=== PATIENT | female | born 1985 | race African-American/Black ===

== ENCOUNTER 2020-08-25 18:34 | Inpatient (IN) | payer SELFPAY ==
[2020-08-25 20:28] LABS: Absolute Lymphocytes (CBC) 1.7 K/uL (0.7-4.9); Basophils % 1.4 % (0-1.3); Hematocrit 32.3 % (36.0-45.0); Lymphocytes % 33.2 % (15.3-44.8); MPV 10.5 fL (7.6-11.3); RBC Red Blood Cell Count 3.89 M/uL (3.86-4.86)
[2020-08-25 20:32] LABS: ALT/SGPT 20 U/L (12-78); AST/SGOT 23 U/L (15-37); Albumin 1.1 g/dL (3.4-5.0); Alkaline Phosphatase 72 U/L (45-117); BUN Blood Urea Nitrogen 15 mg/dL (7-18); Bicarbonate 25 mmol/L (21-32); Bilirubin Direct < 0.1 mg/dL (0-0.2); Glucose Level 86 mg/dL (74-106); Lipase 159 U/L (73-393); Potassium 4.6 mmol/L (3.5-5.1); Protein, Total 5.2 g/dL (6.4-8.2); Sodium Level 143 mmol/L (136-145)
[2020-08-25 20:41] LABS: Protime INR 0.81
[2020-08-25 20:45] LABS: Magnesium 2.1 mg/dL (1.8-2.4); NT PRO-BNP 1111 pg/mL (<125); Troponin (Emerg Dept Use Only) < 0.02 ng/mL (0.0-0.045)
[2020-08-25 21:03] LABS: Bilirubin Total < 0.1 mg/dL (0.2-1.0)
[2020-08-25 21:18] LABS: Urine Blood 2+ (NEG); Urine Glucose NEGATIVE (NEG); Urine Protein 3+ (NEG); Urine Specific Gravity 1.025 (1.005-1.030)
--- NOTE | 2020-08-25 21:24 | RAD REPORT ---
EXAM DESCRIPTION: Clarita Single View08/25/2020 8:42 pm CLINICAL HISTORY: Shortness breath COMPARISON: none FINDINGS: The lungs appear clear of acute infiltrate. The heart is borderline enlarged. Scoliosis i nvolves the spine IMPRESSION: No acute abnormalities displayed
--- NOTE | 2020-08-25 21:41 | EDPHYS ---
Physician Documentation [facility] Name: Sha Hernandez Age: 35 yrs Sex: Female : 1985 Arrival Date: 08/25/2020 Time: 18:35 Bed 20 Private MD: ED Physician Drake Ely HPI: 08/25 20:44 This 35 yrs old Black Female presents to ER via Ambulatory with complaints of jr8 Nausea/Vomiting. 20:44 Onset: The symptoms/episode began/occurred acutely, today. Possible causes: unknown. jr8 The symptoms are aggravated by nothing. The symptoms are alleviated by nothing. Associated signs and symptoms: Pertinent positives: diarrhea, swelling . Severity of symptoms: At their worst the symptoms were moderate in the emergency department the symptoms are unchanged. The patient has not experienced similar symptoms in the past. The patient has not recently seen a physician. Patient stated that she started with edema to lower extremities about 2 weeks ago. Then with diarrhea about 4 days ago and now with vomiting. No medical history that she knows of and denies sick contacts. 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 - Social history:: Smoking status: Patient/guardian denies using tobacco, Stopped _ months ago 4. ROS: 20:44 Eyes: Negative for injury, pain, redness, and discharge, ENT: Negative for injury, jr8 pain, and discharge, Neck: Negative for injury, pain, and swelling, Respiratory: Negative for shortness of breath, cough, wheezing, and pleuritic chest pain, MS/Extremity: Negative for injury and deformity, Skin: Negative for injury, rash, and discoloration, Neuro: Negative for headache, weakness, numbness, tingling, and seizure. 20:44 Cardiovascular: Positive for edema, Negative for chest pain, orthopnea, palpitations, paroxysmal nocturnal dyspnea. 20:44 Abdomen/GI: Positive for nausea, vomiting, and diarrhea, abdominal distension, Negative for abdominal pain, dysphagia, hematemesis, black/tarry stool, rectal pain, rectal bleeding, bowel incontinence, flatulence. 20:44 Back: Positive for pain at rest, Negative for injury or acute deformity, pain with movement, radiated pain. Exam: 20:44 Eyes: Pupils equal round and reactive to light, extra-ocular motions intact. Lids and jr8 lashes normal. Conjunctiva and sclera are non-icteric and not injected. Cornea within normal limits. Periorbital areas with no swelling, redness, or edema. ENT: Nares patent. No nasal discharge, no septal abnormalities noted. Tympanic membranes are normal and external auditory canals are clear. Oropharynx with no redness, swelling, or masses, exudates, or evidence of obstruction, uvula midline. Mucous membranes moist. Neck: Trachea midline, no thyromegaly or masses palpated, and no cervical lymphadenopathy. Supple, full range of motion without nuchal rigidity, or vertebral point tenderness. No Meningismus. Respiratory: Lungs have equal breath sounds bilaterally, clear to auscultation and percussion. No rales, rhonchi or wheezes noted. No increased work of breathing, no retractions or nasal flaring. Back: No spinal tenderness. No costovertebral tenderness. Full range of motion. Skin: Warm, dry with normal turgor. Normal color with no rashes, no lesions, and no evidence of cellulitis. MS/ Extremity: Pulses equal, no cyanosis. Neurovascular intact. Full, normal range of motion. Neuro: Awake and alert, GCS 15, oriented to person, place, time, and situation. Cranial nerves II-XII grossly intact. Motor strength 5/5 in all extremities. Sensory grossly intact. Cerebellar exam normal. Normal gait. 20:44 Cardiovascular: Rate: normal, Rhythm: regular, Pulses: Pulses are 2+ in right radial artery and left radial artery. Heart sounds: normal, normal S1and S2, no S3 or S4, no murmur, no rub, no gallop, Edema: 2+ edema to level of left midcalf, left ankle, left foot, left toes, right midcalf, right ankle, right foot and right toes. 20:44 Abdomen/GI: Inspection: distension, that is mild, Bowel sounds: active, all quadrants, Palpation: abdomen is soft and non-tender, in all quadrants. Vital Signs: 18:51 BP 155 / 112; Pulse 65; Resp 17 S; Temp 97.8(O); Pulse Ox 100% on R/A; Weight 61.23 kg jd3 (R); Height 5 ft. 6 in. (167.64 cm) (R); Pain 8/10; 20:00 BP 158 / 96; Pulse 65; Resp 18; Pulse Ox 99% ; wh 21:00 BP 154 / 100; Pulse 67; Resp 17; Pulse Ox 99% ; wh 22:29 BP 168 / 105; Pulse 61; Resp 18; Pulse Ox 100% on R/A; wh 18:51 Body Mass Index 21.79 (61.23 kg, 167.64 cm) jd3 MDM: 19:41 Patient medically screened. [facility] 21:35 Data reviewed: vital signs, nurses notes, lab test result(s), EKG, radiologic studies, [facility] CT scan, plain films. Data interpreted: Pulse oximetry: on room air is 99 %. Interpretation: normal. Counseling: I had a detailed discussion with the patient and/or guardian regarding: the historical points, exam findings, and any diagnostic results supporting the discharge/admit diagnosis, lab results, radiology results, the need for further work-up and treatment in the hospital. 08/25 19:41 Order name: Basic Metabolic Panel; Complete Time: 21:12 08/25 19:41 Order name: CBC with Diff; Complete Time: 20:43 08/25 19:41 Order name: Hepatic Function; Complete Time: 21:12 08/25 19:41 Order name: Lipase; Complete Time: 21:12 08/25 20:05 Order name: Magnesium; Complete Time: 20:51 8 08/25 20:05 Order name: NT PRO-BNP; Complete Time: 20:51 8 08/25 20:05 Order name: PT-INR; Complete Time: 20:43 8 08/25 20:05 Order name: Troponin (emerg Dept Use Only); Complete Time: 20:51 08/25 20:05 Order name: XRAY Chest (1 view); Complete Time: 21:36 08/25 20:09 Order name: Urine For Protein, Random; Complete Time: 21:12 08/25 20:09 Order name: Urine Creatinine; Complete Time: 21:01 08/25 20:42 Order name: Urine Dipstick--Ancillary (enter results); Complete Time: 21:21 ds4 08/25 21:16 Order name: CT Abd/Pelvis - IV Contrast Only 8 08/25 19:41 Order name: IV Saline Lock; Complete Time: 20:34 jr8 08/25 19:41 Order name: Labs collected and sent; Complete Time: 20:34 8 08/25 19:41 Order name: Urine Dipstick-Ancillary (obtain specimen); Complete Time: 20:38 8 08/25 20:05 Order name: EKG; Complete Time: 20:06 8 08/25 20:05 Order name: Cardiac monitoring; Complete Time: 20:34 8 08/25 20:05 Order name: EKG - Nurse/Tech; Complete Time: 20:34 8 08/25 20:05 Order name: O2 Per Protocol; Complete Time: 20:34 8 08/25 20:05 Order name: O2 Sat Monitoring; Complete Time: 20:34 Administered Medications: 22:04 Drug: Lasix 40 mg {Note: 168/105.} Route: IVP; Site: right antecubital; 22:30 Follow up: Response: No adverse reaction Disposition: 08/25/20 21:40 Hospitalization ordered by Antonio Medina for Inpatient Admission. Preliminary diagnosis is Nephrotic syndrome. - Bed requested for Telemetry/MedSurg (Inpatient). - Status is Inpatient Admission. - Condition is Fair. - Problem is new. - Symptoms are unchanged. Addendum: 08/28/2020 07:09 Co-signature as Attending Physician, Drake Ely MD I agree with the assessment and c cheung plan of care. Signatures: Dispatcher [employer] [facility] Drake Ely MD MD cha Roszak, Josh, PA PA jr8 Lavell Dominguez, BOX PERSON-C BOX PERSON-Cla1 Connie Baker, RN RN Da Engle Alex Nina RN RN jd3 Corrections: (The following items were deleted from the chart) 08/25 19:41 19:41 Urine Test ordered. [facility] 21:47 21:40 Hospitalization Ordered by Antonio Medina MD for Inpatient Admission. Preliminary cg diagnosis is Nephrotic syndrome. Bed requested for Telemetry/MedSurg (Inpatient). Status is Inpatient Admission. Condition is Fair. Problem is new. Symptoms are unchanged. jr8 23:04 21:47 08/25/2020 21:40 Hospitalization Ordered by Antonio Medina MD for Inpatient Admission. Preliminary diagnosis is Nephrotic syndrome. Bed requested for Telemetry/MedSurg (Inpatient). Status is Inpatient Admission. Condition is Fair. Problem is new. Symptoms are unchanged. cg
--- NOTE | 2020-08-25 21:41 | ER ---
Nurse's Notes [facility] Name: Sha Hernandez Age: 35 yrs Sex: Female : 1985 Arrival Date: 08/25/2020 Time: 18:35 Bed 20 Private MD: Diagnosis: Nephrotic syndrome Presentation: 08/25 18:49 Chief complaint: Spouse and/or significant other states: "it started about a week ago. jd3 she started swelling in her stomach. then was diarrhea, now it throwing up for accouple of days.". Coronavirus screen: diarrhea, Client presents with at least one sign or symptom that may indicate coronavirus-19. Standard/surgical mask placed on the client. Provider contacted for isolation considerations. At this time, the client does not indicate any symptoms associated with coronavirus-19. Ebola Screen: Patient negative for fever greater than or equal to 101.5 degrees Fahrenheit, and additional compatible Ebola Virus Disease symptoms. Initial Sepsis Screen: Does the patient meet any 2 criteria? No. Patient's initial sepsis screen is negative. Does the patient have a suspected source of infection? No. Patient's initial sepsis screen is negative. Risk Assessment: Do you want to hurt yourself or someone else? Patient reports no desire to harm self or others. Onset of symptoms was August 15, 2020. 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 - Social history:: Smoking status: Patient/guardian denies using tobacco, Stopped _ months ago 4. Screenin:00 Abuse screen: Denies threats or abuse. Denies injuries from another. Nutritional wh screening: No deficits noted. Tuberculosis screening: No symptoms or risk factors identified. Fall Risk None identified. Assessment: 19:30 General: Appears in no apparent distress. Behavior is calm, cooperative, appropriate wh for age. Pain: Complains of pain in low back. Neuro: Level of Consciousness is awake, alert, obeys commands, Oriented to person, place, time, situation, Appropriate for age. Cardiovascular: Heart tones S1 S2 Edema is 2+ to left ankle and right ankle Rhythm is regular. Respiratory: Airway is patent Respiratory effort is even, unlabored, Respiratory pattern is regular, symmetrical, Breath sounds are clear bilaterally. GI: Abdomen is flat, distended, Bowel sounds present X 4 quads. Abd is soft Abdomen is tender to palpation X 4 quads. GI: Reports diarrhea, nausea, vomiting. : No signs and/or symptoms were reported regarding the genitourinary system. EENT: No signs and/or symptoms were reported regarding the EENT system. Derm: Skin is intact, is healthy with good turgor, Skin is pink, warm \\T\\ dry. normal. Musculoskeletal: Circulation, motion, and sensation intact. 20:55 Reassessment: Patient appears in no apparent distress at this time. No changes from previously documented assessment. Patient and/or family updated on plan of care and expected duration. Pain level reassessed. Patient is alert, oriented x 3, equal unlabored respirations, skin warm/dry/pink. 22:00 Reassessment: Patient appears in no apparent distress at this time. Patient and/or family updated on plan of care and expected duration. Pain level reassessed. Patient is alert, oriented x 3, equal unlabored respirations, skin warm/dry/pink. Provider AT bedside explaing POC need for admit. Vital Signs: 18:51 BP 155 / 112; Pulse 65; Resp 17 S; Temp 97.8(O); Pulse Ox 100% on R/A; Weight 61.23 kg jd3 (R); Height 5 ft. 6 in. (167.64 cm) (R); Pain 8/10; 20:00 BP 158 / 96; Pulse 65; Resp 18; Pulse Ox 99% ; wh 21:00 BP 154 / 100; Pulse 67; Resp 17; Pulse Ox 99% ; wh 22:29 BP 168 / 105; Pulse 61; Resp 18; Pulse Ox 100% on R/A; wh 18:51 Body Mass Index 21.79 (61.23 kg, 167.64 cm) jd3 ED Course: 18:35 Patient arrived in ED. ag5 18:50 Triage completed. jd3 18:51 Arm band placed on. jd3 19:40 Jim Davis PA is PHCP. jr8 19:40 Drake Ely MD is Attending Physician. jr8 19:43 Da Engle is Primary Nurse. 20:00 Patient has correct armband on for positive identification. Placed in gown. Bed in low wh position. Call light in reach. Side rails up X 1. prototype special build on. Pulse ox on. NIBP on. 20:00 Inserted saline lock: 20 gauge in right antecubital area, using aseptic technique. Blood collected. 20:41 Urine For Protein, Random Sent. ds4 20:41 Urine Creatinine Sent. ds4 20:42 XRAY Chest (1 view) In Process Unspecified. EDMS 20:42 EKG done, by ED staff, reviewed by Jim MTZ. ds4 21:40 Antonio Medina MD is Hospitalizing Provider. jr8 21:57 CT Abd/Pelvis - IV Contrast Only In Process Unspecified. EDMS 22:29 No provider procedures requiring assistance completed. Patient admitted, IV remains in place. Administered Medications: 22:04 Drug: Lasix 40 mg {Note: 168/105.} Route: IVP; Site: right antecubital; 22:30 Follow up: Response: No adverse reaction Outcome: 21:40 Decision to Hospitalize by Provider. jr8 22:53 Admitted to Med/surg accompanied by tech, family with patient, via wheelchair, room wh 231, with chart, Report called to Yuridia Carrillo RN 22:53 Condition: stable 22:53 Instructed on the need for admit. 23:04 Patient left the ED. Signatures: Dispatcher [employer] EDMS Jim Davis PA PA jr8 Navin Wang ds4 Da Engle Alex Nina RN RN jd3 Td Capps ag5 Corrections: (The following items were deleted from the chart) 21:09 19:30 Cardiovascular: Heart tones S1 S2 Rhythm is regular [facility]
[2020-08-25] MEDS ORDERED: FUROSEMIDE 40 MG/4 ML VIAL ONE (22:13)
--- NOTE | 2020-08-25 23:18 | P.HP ---
Certification for Inpatient Patient admitted to: Observation With expected LOS: <2 Midnights Patient will require the following post-hospital care: None Practitioner: I am a practitioner with admitting privileges, knowledge of patient current condition, hospital course, and medical plan of care. Services: Services provided to patient in accordance with Admission requirements found in Title 42 Section 412.3 of the Code of Federal Regulations <Lavell Dominguez - Last Filed: 08/25/20 23:12> Patient History Date of Service: 08/25/20 Primary Care Provider: None History of Present Illness: 35-year-old Afro-Iranian female with no medical history presents emergency department for edema over the course of the last 2 weeks and nausea vomiting, diarrhea for 1 day. Patient denies any similar symptoms in the past, reports swelling to bilateral lower extremities, abdomen, periorbital areas. Patient was evaluated in the emergency department and found to have Elevated urine random total protein of 1169, 3+ protein and 2+ blood on urine analysis creatinine is 1.08 GFR 71 BUN 15, BNP elevated at 1111. Albumin low at 1.1. Total serum protein 5.2. Patient also CT of the abdomen and pelvis due to nausea and vomiting which showed wall thickening and some loops of the small bowel and in portions of the colon suggesting infectious or inflammatory enterocolitis. There is also increased density in the mesenteric and omental fat which could be from inflammatory changes. Increased density throughout the subcutaneous tissues suggesting edema/anasarca. Due to physical exam and laboratory findings is likely patient has nephrotic syndrome. ED provider wishes to admit patient for further evaluation and management. When I saw the patient in the emergency department she was awake, alert, oriented x3. Patient reports she has been having nausea, vomiting, diarrhea admit the swelling began approximately 2 weeks ago. Patient does not appear septic at this time, white blood cell count within normal limits. Believe changes on CT scan are likely inflammatory in nature. The patient be admitted for further evaluation and management. - Past Medical/Surgical History -: None -: Tubal ligation Psychosocial/ Personal History: Patient lives at home with her - Family History Father -: Heart disease - Social History Smoking Status: Never smoker Alcohol use: No CD- Drugs: No Caffeine use: Yes Place of Residence: Home <BellanancieLavell - Last Filed: 08/25/20 23:12> Date of Service: 08/30/20 <Antonio Medina - Last Filed: 08/30/20 13:19> Review of Systems 10-point ROS is otherwise unremarkable General: Malaise Cardiovascular: Edema, As per HPI Gastrointestinal: Nausea, Vomiting, Diarrhea <Lavell Dominguez - Last Filed: 08/25/20 23:12> Physical Examination - Physical Exam General: Alert, In no apparent distress, Oriented x3 HEENT: Atraumatic, Normocephalic, PERRLA Neck: Supple Respiratory: Clear to auscultation bilaterally, Normal air movement Cardiovascular: Edema (Bilateral lower extremities, 1+ pitting, edema to the abdomen, periorbital edema) Capillary refill: <2 Seconds Gastrointestinal: Normal bowel sounds, No tenderness, No rebound, No guarding Musculoskeletal: No contractures, No erythema, No tenderness Integumentary: No significant lesion, No tenderness/swelling, No erythema Neurological: Normal speech, Normal strength at 5/5 x4 extr, Normal tone, Sensation intact - Studies Laboratory Data (last 24 hrs) 08/25/20 20:10: PT 9.6, INR 0.81 08/25/20 20:10: Magnesium 2.1 08/25/20 20:10: WBC 5.1, Hgb 10.5 L, Hct 32.3 L, Plt Count 238 08/25/20 20:10: Sodium 143, Potassium 4.6, BUN 15, Creatinine 1.08, Glucose 86, Total Bilirubin < 0.1 L, AST 23, ALT 20, Alkaline Phosphatase 72, Lipase 159 <Lavell Dominguez - Last Filed: 08/25/20 23:12> Assessment and Plan - Plan Assessment Nephrotic syndrome Hypoalbuminemia Enterocolitis Hypertension Plan Nephrotic syndrome: Nephrology consulted, labs that were recommended have been ordered. Patient with significant edema of the lower extremities, abdomen, periorbital areas. Continue with diuresis. Will obtain echocardiogram. Further evaluation from nephrology. Hypoalbuminemia: Discussed with nephrology, continue with diuresis at this time. Transfusion of albumin and not likely to be effective due to nephrotic syndrome. Appreciate further input from nephrology. Enterocolitis: Likely inflammatory in nature, white blood cell count within normal limits, patient without any pain or tenderness on exam. Will obtain pro calcitonin and repeat labs in the morning. Will trial prednisone. Hypertension: Continue with nephrology recommended hydralazine 100 mg t.i.d. with parameters. Discharge Plan: Home Plan to discharge in: 24 Hours - Advance Directives Does patient have a Living Will: No Does patient have a Durable POA for Healthcare: No - Code Status/Comfort Care Code Status Assessed: Yes (Patient is full code) Critical Care: No Time Spent Managing Pts Care (In Minutes): 55 <Lavell Dominguez - Last Filed: 08/25/20 23:12> Physician Review Additional Text: Plan of care discussed with Lavell Dominguez, and I agree with the management plan as noted above. <Antonio Medina - Last Filed: 08/30/20 13:19>
[2020-08-25 23:40] VITALS: BMI 24.5
[2020-08-26] MEDS: HYDRALAZINE HCL 20 MG/ML VIAL IV PRN ×2 (00:25→18:10)
[2020-08-26] MEDS: HEPARIN 5000 UNIT/ML 1 ML VIAL SQ SCH ×3 (00:25→16:22)
[2020-08-26 06:17] LABS: Absolute Lymphocytes (CBC) 1.5 K/uL (0.7-4.9); Basophils % 1.1 % (0-1.3); Lymphocytes % 26.4 % (15.3-44.8); RBC Red Blood Cell Count 3.82 M/uL (3.86-4.86)
[2020-08-26] MEDS: ACETAMINOPHEN 500 MG TAB PO PRN ×2 (06:31→16:49)
[2020-08-26 06:39] LABS: Thyroid Stimulating Hormone 3.32 uIU/mL (0.360-3.740)
[2020-08-26] MEDS: predniSONE 20 MG TAB PO SCH (08:15)
--- NOTE | 2020-08-26 08:20 | EKG ---
Test Date: 2020-08-25 Test Time: 20:29:53 Numerical Control Machine Tool Operator: KELSEY MEASUREMENT RESULTS: Intervals: Rate: 61 NC: 172 QRSD: 76 QT: 428 QTc: 430 [place]: P: 60 NC: 172 QRS: 63 T: 49 INTERPRETIVE STATEMENTS: Normal sinus rhythm with sinus arrhythmia Possible Left atrial enlargement Borderline ECG No previous ECG available for comparison Electronically Signed On 08-26-20 08:19:19 CDT by Bradly Beltrán
[2020-08-26] MEDS ORDERED: FUROSEMIDE 40 MG/4 ML VIAL IV SCH (09:00)
[2020-08-26] MEDS ORDERED: HYDRALAZINE HCL 25 MG TABLET PO SCH (09:00)
[2020-08-26] MEDS: HYDRALAZINE HCL 25 MG TABLET PO SCH ×3 (10:07→20:24)
[2020-08-26] MEDS: ONDANSETRON 4 MG/2 ML VIAL IV PRN (15:09)
--- NOTE | 2020-08-26 15:40 | P.CNS ---
Date of Consult: 08/26/20 Reason for Consult: edema, nephrotic range proteinuria Primary Care Provider: None History of Present Illness: HPI 35-year-old Afro-Filipino female with PMHx ofr mild anemia presents emergency department for edema over the course of the last 2 weeks and nausea vomiting, diarrhea for 1 day. 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 will order serology w/u will start on lipitor and lisinopril salt and fluid restriction cont lasix will consider renal biopsy as an OP edema as above HTN cont hydralazine, will add lisinopril HLD likely due to nephrotic syndrome will add lipitor hypoalbuminemia Allergies Sulfa (Sulfonamide Antibiotics) Allergy (Verified 08/25/20 23:40) Rash Home Medications: NK [No Home Meds] 08/25/20 - Past Medical/Surgical History Diabetic: No -: None -: Tubal ligation Psychosocial/ Personal History: Patient lives at home with her - Family History Father Medical History: Heart disease - Social History Alcohol use: No CD- Drugs: No Caffeine use: No Place of Residence: Home Physical Examination Temp Pulse Resp BP Pulse Ox 98.2 F 73 16 151/91 H 100 08/26/20 12:00 08/26/20 12:00 08/26/20 12:00 08/26/20 12:00 08/26/20 12:00 Laboratory Data (last 24 hrs) 08/25/20 20:10: PT 9.6, INR 0.81 08/25/20 20:10: Magnesium 2.1 08/25/20 20:10: WBC 5.1, Hgb 10.5 L, Hct 32.3 L, Plt Count 238 08/25/20 20:10: Sodium 143, Potassium 4.6, BUN 15, Creatinine 1.08, Glucose 86, Total Bilirubin < 0.1 L, AST 23, ALT 20, Alkaline Phosphatase 72, Lipase 159
--- NOTE | 2020-08-26 17:25 | P.PN ---
Subjective Date of Service: 08/26/20 Primary Care Provider: None Subjective: Improving (Improved bilateral leg swelling, no back pain) Review of Systems 10-point ROS is otherwise unremarkable Physical Examination - Vital Signs Temperature: 98 F Blood Pressure: 152/89 Pulse: 90 Respirations: 16 Pulse Ox (%): 100 - Physical Exam General: Alert, In no apparent distress HEENT: Mucous membr. moist/pink Neck: JVD not distended Respiratory: Clear to auscultation bilaterally, Normal air movement Cardiovascular: Edema (2+ pitting bilateral kidneys) Gastrointestinal: Soft and benign, Non-distended, No tenderness, Other (No CVA tenderness) Musculoskeletal: No erythema, No tenderness Integumentary: No rashes Neurological: Normal speech, Normal affect - Studies Laboratory Data (last 24 hrs) 08/25/20 20:10: PT 9.6, INR 0.81 08/25/20 20:10: Magnesium 2.1 08/25/20 20:10: WBC 5.1, Hgb 10.5 L, Hct 32.3 L, Plt Count 238 08/25/20 20:10: Sodium 143, Potassium 4.6, BUN 15, Creatinine 1.08, Glucose 86, Total Bilirubin < 0.1 L, AST 23, ALT 20, Alkaline Phosphatase 72, Lipase 159 Assessment & Plan Physician Review Additional Text: Nephrotic syndrome Hypoalbuminemia Enterocolitis Hypertension Hyperlipidemia Plan Nephrotic syndrome: -patient admitted with significant edema of lower extremities, abdomen, periorbital areas. -echocardiogram ordered -Nephrology consulted -urine studies and serology workup pending -Diuresing with 40 mg IV daily Hypoalbuminemia: -Transfusion of albumin not likely to be effective due to nephrotic syndrome. Enterocolitis: -Likely inflammatory in nature, white blood cell count within normal limits, patient without any pain or tenderness on exam. -pro calcitonin negative, started on prednisone on admission Hypertension: -hydralazine 50 mg t.i.d. with parameters. Hyperlipidemia -Lipid panel with elevated LDL and cholesterol, will start statin Dispo: anticipate dc home in 24-48 hrs, pending further workup/eval Time Spent Managing Pts Care (In Minutes): 35
[2020-08-26 19:00] LABS: Barbiturates NEGATIVE (NEGATIVE); Benzodiazepines NEGATIVE (NEGATIVE); Cocaine NEGATIVE (NEGATIVE); METHAMPHETAM NEGATIVE (NEGATIVE); Methadone NEGATIVE (NEGATIVE); Opiates NEGATIVE (NEGATIVE); Phencyclidine NEGATIVE (NEGATIVE); THC Cannibis POSITIVE (NEGATIVE)
[2020-08-26] MEDS: MELATONIN 5 MG TABLET PO SCH (20:24)
[2020-08-26] MEDS: ATORVASTATIN 20 MG TAB PO SCH (20:24)
[2020-08-26] MEDS: MORPHINE 2 MG/ML SYR IV PRN (23:58)
[2020-08-27] MEDS: HEPARIN 5000 UNIT/ML 1 ML VIAL SQ SCH ×3 (00:02→16:37)
[2020-08-27] MEDS: MORPHINE 2 MG/ML SYR IV PRN ×2 (06:16→19:41)
[2020-08-27 06:45] LABS: Absolute Lymphocytes (CBC) 2.4 K/uL (0.7-4.9); Basophils % 1.1 % (0-1.3); Lymphocytes % 26.5 % (15.3-44.8); MPV 10.5 fL (7.6-11.3); RBC Red Blood Cell Count 3.91 M/uL (3.86-4.86)
[2020-08-27 06:52] LABS: Magnesium 1.9 mg/dL (1.8-2.4)
[2020-08-27] MEDS: HYDRALAZINE HCL 25 MG TABLET PO SCH ×3 (08:56→21:10)
[2020-08-27] MEDS: predniSONE 20 MG TAB PO SCH (08:56)
--- NOTE | 2020-08-27 11:59 | P.PN ---
Subjective Date of Service: 08/27/20 Primary Care Provider: None Subjective: Improving (Swelling is better, denies any pain, denies shortness of breath, no dysuria) Physical Examination - Vital Signs Temperature: 98.3 F Blood Pressure: 139/80 Pulse: 92 Respirations: 20 Pulse Ox (%): 99 - Physical Exam General: Alert, In no apparent distress HEENT: Mucous membr. moist/pink, Sclerae nonicteric Respiratory: Clear to auscultation bilaterally, Normal air movement Cardiovascular: Regular rate/rhythm, Edema (1+ on b/l legs) Gastrointestinal: Soft and benign, Non-distended, No tenderness Musculoskeletal: No erythema, No tenderness Integumentary: No rashes Neurological: Normal speech, Normal affect Assessment & Plan Physician Review Additional Text: Nephrotic syndrome Hypoalbuminemia Enterocolitis Hypertension Hyperlipidemia Plan Nephrotic syndrome: -patient admitted with significant edema of lower extremities, abdomen, periorbital areas. -echocardiogram ordered -Nephrology consulted, urine studies and serology workup pending -Cr increased this morning (1.0-> 1.42), discontinued Lasix and lisinopril, repeats labs in AM Hypoalbuminemia: -Transfusion of albumin not likely to be effective due to nephrotic syndrome. Enterocolitis: -Likely inflammatory in nature, white blood cell count within normal limits, patient without any pain or tenderness on exam. -pro calcitonin negative, started on prednisone on admission, no abdominal tenderness Hypertension: -hydralazine 50 mg t.i.d. with parameters. Hyperlipidemia -Lipid panel with elevated LDL and cholesterol, started on statin on 08/26 Dispo: anticipate dc home in 24-48 hrs, pending further workup/eval, improvement of kidney function Time Spent Managing Pts Care (In Minutes): 35
--- NOTE | 2020-08-27 14:03 | P.PN ---
Subjective Date of Service: 08/27/20 Primary Care Provider: None Subjective 35-year-old Afro-[place]hut[place] female with PMHx ofr mild anemia presents emergency department for edema over the course of the last 2 weeks and nausea vomiting, diarrhea for 1 day. pt denied any Hx fo NSAID intake , no significant renal diseases in family today cr up to 1.4 after starting , lasix and lisinopril will dc lasix and lisinopril edema improved 24 hr urine ~7.8grams if no improvement in Cr then will consider renal biopsy during this admission Physical Examination: General: AAOX3, , obeses neck: supple, no elevated JVD Heart: RRR, normal S1,2 no murmur or rub chest CTAB, no rales or whezes Abdomen: soft , NT ext : +1 edema A/p Nephrotic range proteinuria unclear etiology , possible FSGS will order serology w/u off lisinopril and lasix due to [place] salt and fluid restriction cont lasix will consider renal biopsy if no improvement in Cr edema as above hold lasix for now HTN BP controlled cont hydralazine, HLD likely due to nephrotic syndrome will add Lipitor hypoalbuminemia gastroenteritis likely due to THC will stop prednisone Physical Examination - Vital Signs Temperature: 98.7 F Blood Pressure: 126/77 Pulse: 85 Respirations: 99 Pulse Ox (%): 99
[2020-08-27] MEDS ORDERED: lisinopriL 10 MG TAB PO SCH (16:00)
[2020-08-27] MEDS: ONDANSETRON 4 MG/2 ML VIAL IV PRN (19:31)
[2020-08-27] MEDS: MELATONIN 5 MG TABLET PO SCH (21:10)
[2020-08-27] MEDS: ATORVASTATIN 20 MG TAB PO SCH (21:11)
[2020-08-28] MEDS: HEPARIN 5000 UNIT/ML 1 ML VIAL SQ SCH ×3 (00:39→17:01)
[2020-08-28] MEDS: MORPHINE 2 MG/ML SYR IV PRN ×2 (02:27→15:48)
[2020-08-28] MEDS: ONDANSETRON 4 MG/2 ML VIAL IV PRN ×2 (02:27→15:44)
[2020-08-28 06:08] LABS: Hematocrit 29.8 % (36.0-45.0); MPV 10.3 fL (7.6-11.3); RBC Red Blood Cell Count 3.61 M/uL (3.86-4.86)
[2020-08-28 06:24] LABS: Magnesium 2.1 mg/dL (1.8-2.4); Potassium 4.3 mmol/L (3.5-5.1)
[2020-08-28] MEDS: HYDRALAZINE HCL 25 MG TABLET PO SCH ×3 (08:34→21:33)
[2020-08-28 14:40] LABS: Rheumatoid Factor POS (NEG)
--- NOTE | 2020-08-28 14:52 | ECHO ---
HEIGHT: 5 ft 6 in WEIGHT: 151 lb 9.6 oz DATE OF STUDY: 08/28/[address]: Lavell Dominguez NP 2-DIMENSIONAL: YES M.MODE: YES DOPPLER: YES COLOR FLOW: YES TDS: PORTABLE: DEFINITY: BUBBLE STUDY: DIAGNOSIS: ELEVATED BNP, EDEMA OF LOWER EXTREMITIES CARDIAC HISTORY: CATHERIZATION: NO SURGERY: NO PROSTHETIC VALVE: NO PACEMAKER: NO MEASUREMENTS (cm) DIASTOLIC (NORMALS) SYSTOLIC (NORMALS) IVSd 1.1 (0.6-1.2) LA Diam 2.9 (1.9-4.0) LVEF 68% LVIDd 4.9 (3.5-5.7) LVIDs 3.0 (2.0-3.5) %FS 38% LVPWd 1.1 (0.6-1.2) Ao Diam 2.6 (2.0-3.7) 2 DIMENSIONAL ASSESSMENT: RIGHT ATRIUM: NORMAL LEFT ATRIUM: NORMAL RIGHT VENTRICLE: NORMAL LEFT VENTRICLE: NORMAL TRICUSPID VALVE: MILD TRICUSPID REGURGITATION MITRAL VALVE: MILD MITRAL REGURGITATION PULMONIC VALVE: MILD PULMONARY INSUFFIENCY AORTIC VALVE: NORMAL PERICARDIAL EFFUSION: MILD AORTIC ROOT: NORMAL LEFT VENTRICULAR WALL MOTION: NORMAL DOPPLER/COLOR FLOW: NORMAL DIASTOLIC FUNCTION COMMENTS: NORMAL LEFT VENTRICULAR EJECTION FRACTION 55-60% WITH NORMAL WALL MOTION. NORMAL DIASTOLIC FUNCTION. MILD TRICUSPID REGURGITATION, MILD MITRAL REGURGITATION. MILD PERICARDIAL EFFUSION. TECHNOLOGIST: RACHEL OSHEA
--- NOTE | 2020-08-28 18:28 | P.PN ---
Subjective Date of Service: 08/28/20 Primary Care Provider: None Subjective: Improving (Lower leg edema significantly improving, feeling well The shortness of breath, no chest pain, no abdominal pain, no back) Physical Examination - Vital Signs Temperature: 98.5 F Blood Pressure: 155/89 Pulse: 77 Respirations: 16 Pulse Ox (%): 100 - Physical Exam General: Alert HEENT: Mucous membr. moist/pink, Sclerae nonicteric Neck: Supple, JVD not distended Respiratory: Clear to auscultation bilaterally, Normal air movement Cardiovascular: Regular rate/rhythm, Normal S1 S2, Edema (1+ bilaterally to the knees) Gastrointestinal: Soft and benign, Non-distended, No tenderness Musculoskeletal: No erythema, No tenderness Integumentary: No rashes Neurological: Normal speech, Normal affect Assessment & Plan Physician Review Additional Text: Nephrotic syndrome Hypoalbuminemia Enterocolitis Hypertension Hyperlipidemia Plan Nephrotic syndrome: -patient admitted with significant edema of lower extremities, abdomen, periorbital areas. -echocardiogram to be done today -Nephrology consulted, urine studies and serology workup pending -Cr increased 08/27 (1.0-> 1.42), discontinued Lasix and lisinopril -discuss with nephrology today, will restart lower dose, 20 mg PO Lasix b.i.d., 2.5 mg lisinopril -recheck labs in a.m. Hypoalbuminemia: -Transfusion of albumin not likely to be effective due to nephrotic syndrome. Enterocolitis: -Likely inflammatory in nature, white blood cell count within normal limits, patient without any pain or tenderness on exam. -pro calcitonin negative, was initially started on prednisone on admission, discontinued Hypertension: -hydralazine 50 mg t.i.d. with parameters. Hyperlipidemia -Lipid panel with elevated LDL and cholesterol, started on statin on 08/26 Dispo: anticipate dc home in 24 hrs, pending further workup/eval, improvement of kidney function Time Spent Managing Pts Care (In Minutes): 35
[2020-08-28] MEDS: lisinopriL 5 MG TAB PO SCH (19:28)
[2020-08-28] MEDS: FUROSEMIDE 20 MG TABLET PO SCH (19:28)
[2020-08-28] MEDS: ATORVASTATIN 20 MG TAB PO SCH (21:32)
[2020-08-28] MEDS: MELATONIN 5 MG TABLET PO SCH (21:33)
[2020-08-29] MEDS: HEPARIN 5000 UNIT/ML 1 ML VIAL SQ SCH ×2 (02:21→09:12)
[2020-08-29] MEDS: ACETAMINOPHEN 500 MG TAB PO PRN (04:10)
[2020-08-29 06:07] LABS: Hematocrit 28.8 % (36.0-45.0); MPV 10.2 fL (7.6-11.3)
[2020-08-29 06:12] LABS: ALT/SGPT 15 U/L (12-78); AST/SGOT 20 U/L (15-37); Albumin 0.9 g/dL (3.4-5.0); Alkaline Phosphatase 60 U/L (45-117); BUN Blood Urea Nitrogen 19 mg/dL (7-18); Bicarbonate 28 mmol/L (21-32); Bilirubin Total 0.1 mg/dL (0.2-1.0); Glucose Level 80 mg/dL (74-106); Magnesium 2.1 mg/dL (1.8-2.4); Potassium 4.2 mmol/L (3.5-5.1); Protein, Total 4.6 g/dL (6.4-8.2); Sodium Level 141 mmol/L (136-145)
[2020-08-29] MEDS: lisinopriL 5 MG TAB PO SCH (09:10)
[2020-08-29] MEDS: HYDRALAZINE HCL 25 MG TABLET PO SCH ×3 (09:10→20:00)
[2020-08-29] MEDS: FUROSEMIDE 20 MG TABLET PO SCH ×2 (09:11→17:18)
--- NOTE | 2020-08-29 12:33 | RAD REPORT ---
EXAM DESCRIPTION: CT - Abdomen Pelvis W Contrast - 08/26/2020 6:51 am CLINICAL HISTORY: 35 years Female Abdominal distention;Abd pain COMPARISON: None. TECHNIQUE: Contiguous axial images obtained through the abdomen and pelvis following IV contrast. Re formatted images obtained. This exam was performed according to our department optimization program which includes automated exp osure control, adjustment of the mA and/or kv according to patient size and/or use of iterative recon struction technique. FINDINGS: Mild scarring/atelectasis in the lower lungs. Small pericardial effusion. There is a 0.4 cm low-density lesion in the superior liver which is not completely characterized but likely represents a cyst. There is mild fatty replacement in the liver around the area of the falcifo rm ligament. The spleen and pancreas appear unremarkable. No adrenal masses. The kidneys appear unremarkable. No hydronephrosis. The gallbladder is visualized. No aneurysmal dilatation of the aorta. No bowel obstruction. The appendix is not well visualized. There is likely wall thickening in so me loops of small bowel and in portions of the colon suggesting infectious or inflammatory enterocoli tis. There is also increased density in the mesenteric and omental fat which could be from inflammato ry change. There is a 6.5 cm mass lesion arising from the fundus of the uterus likely representing a fibroid. Th ere is also a calcified lesion in the uterus likely representing an additional fibroid. There is a sm all amount of free fluid in the pelvis. There is increased density throughout the subcutaneous tissues consistent with edema/anasarca. IMPRESSION: There is likely wall thickening in some loops of small bowel and in portions of the colo n suggesting infectious or inflammatory enterocolitis. There is also increased density in the mesente nicolasa and omental fat which could be from inflammatory change. There is increased density throughout the subcutaneous tissues suggesting edema/anasarca. Fibroid uterus. There is a large exophytic fibroid arising from the fundus of the uterus. Other findings as above. Electronically signed by: Chon Clark MD 08/25/2020 10:29 PM CDT Due to temporary technical issues with the PACS/Fluency reporting system, reports are being signed by the in house radiologist without review as a courtesy to ensure prompt reporting. The interpreting r adiologist is fully responsible for the content of the report.
--- NOTE | 2020-08-29 14:00 | PN ---
Date of Progress Note: 08/28/2020 Chief Complaint: Anasarca, severe proteinuria, nephrotic range proteinuria, fluid overload. Subjective: The patient is a 35-year-old woman with past medical history of mild anemia. She presen milana to emergency room because of progressively worse swelling involving the lower extremity and upper body and she noted severe swelling in the legs over the last 2 weeks. She developed nausea, vomitin g, diarrhea 1 day prior of admission. She has history of hypertension and was taking lisinopril. Th e patient denies family history of significant kidney problems. During this admission she was starte d on Lasix and was on lisinopril for antiproteinuric effect as well as to control high blood pressure . Lasix was used for volume control. She developed acute on chronic kidney injury. Over last 2 day s creatinine level went up. Workup revealed 24 hours urine, 7.8 g of protein. She denies PND, ortho pnea. Review of Systems: Denies PND, orthopnea. Physical Examination: Lungs: Clear to auscultation bilaterally. Heart: S1, S2. Abdomen: Soft, benign. Extremities: Edema 1 to 2+ in both legs. Laboratory Data: Sodium 143, potassium 4.3, chloride 112, CO2 26, BUN 23, creatinine 1.29, glucose 7 8, calcium 7.2, albumin 1.0, BUN 20, creatinine 1.42. Impression And Plan: 1.Acute on chronic kidney injury. Creatinine level was up to 1.42, BUN ranging from 20-23. Patient was taken off DONALD inhibitor because of acute kidney injury with prerenal azotemia. Creatinine level is somewhat stabilizing. Plan is to resume low-dose DONALD inhibitor for blood pressure control and an tiproteinuric effect. Patient will continue Lasix for volume control and edema control. Workup was initiated to screen for secondary glomerulonephritis and to rule out vasculitis. Patient has severe proteinuria of nephrotic range. Patient will need biopsy to check for possible etiology and regular treatment of glomerulonephritis is present with immunosuppressive medication. 2.Hypoalbuminemia, due to severe nephrotic syndrome. Patient will continue low-sodium diet. Plan i s to continue DONALD inhibitor for blood pressure control and antiproteinuric effect. 3.Hyperlipidemia in setting of severe nephrotic syndrome. Continue Lipitor. Monitor lipid plan. 4.Hypertension. Blood pressure in acceptable control. Resume DONALD inhibitor. EB/MODL Voice ID: [id number] Report ID: [id number]
--- NOTE | 2020-08-29 15:39 | PN ---
Date of Progress Note: 08/29/2020 Subjective: The patient was admitted with nephrotic range proteinuria and hypertension. Patient denied any nonsteroidal. Patient's workup showed elevation in proteinuria. Started on Lasix. Started establishing better volume control. Blood pressure being normalized. Serology is still pending. Kidney function has been improved significantly. Physical Examination: Vital Signs: When I saw the patient, blood pressure 136/84, pulse of 71, afebrile. The patient had 1400 of urine output, even balanced. Chest: Clear to auscultation. Heart: S1, S2, regular. Abdomen: Soft, nontender. Extremities: Trace edema. Neurological: Alert and oriented x3. No focal. Laboratory Data: Sodium 141, potassium 4.2, bicarb 28, BUN 19, creatinine 1.2, calcium 7.2, magnesium 2.1. Albumin is 0.9. Serum protein electrophoresis is still pending. TSH of 3. PC ratio 10. 24-hour is 7.8 g. Rheumatoid factor positive . Current Medications: The patient on include, 1. Atorvastatin. 2. Lisinopril 2.5. 3. Lasix 20 b.i.d. 4. Melatonin. Assessment And Plan: 1. Nephrotic range of proteinuria, no hematuria, kidney function improved. With the presence of positive rheumatoid factor, the patient will need to have kidney biopsy. I discuss with the patient about that. The patient on agreement. We will proceed with the kidney biopsy. The patient can be discharge after that. 2. Hypertension with the presence of nephrotic range of proteinuria. Continue Lasix and lisinopril. The patient educated about avoiding any using contraceptive measure and the presence of taking off lisinopril. 3. Edema secondary to nephrotic range proteinuria. Continue diuresis. Time spent coordinating the care, discuss him with all of our team members including othere human capital consultant and hospitalist and [id number] with the patient and please go out of 35 min IRINA/ALISIA Voice ID: [id number] Report ID: [id number] HERMES
--- NOTE | 2020-08-29 17:22 | P.PN ---
Subjective Date of Service: 08/29/20 Primary Care Provider: None Patient has no new complaint. She states she is doing better. Anasarca has significantly improved. Physical Examination - Vital Signs Temperature: 98 F Blood Pressure: 128/75 Pulse: 79 Respirations: 16 Pulse Ox (%): 100 - Physical Exam General: Alert, In no apparent distress, Oriented x3 HEENT: Mucous membr. moist/pink Neck: Supple Respiratory: Clear to auscultation bilaterally, Normal air movement Cardiovascular: Normal pulses, Regular rate/rhythm, Normal S1 S2, Edema (Trace bilateral lower extremity pitting edema.) Gastrointestinal: Normal bowel sounds, Soft and benign, Non-distended Musculoskeletal: No tenderness Integumentary: No rashes Neurological: Normal speech, Normal strength at 5/5 x4 extr Assessment And Plan Physician Review Additional Text: Nephrotic syndrome Hypoalbuminemia Enterocolitis Hypertension Hyperlipidemia Plan Nephrotic syndrome: -anasarca has significantly improved -echocardiogram unremarkable -Nephrology input appreciated. Nephrology recommend kidney biopsy. -intervention radiology kidney biopsy tomorrow. -serum creatinine is stable on current oral Lasix dose. -monitor renal function Hypoalbuminemia: -monitor. Enterocolitis: -stable Hypertension: -hydralazine 50 mg t.i.d. with holding parameters. Hyperlipidemia -Lipid panel with elevated LDL and cholesterol. -continue statin.
[2020-08-29] MEDS: MORPHINE 2 MG/ML SYR IV PRN (19:55)
[2020-08-29] MEDS: ATORVASTATIN 20 MG TAB PO SCH (20:00)
[2020-08-29] MEDS: MELATONIN 5 MG TABLET PO SCH (20:00)
[2020-08-29 23:08] VITALS: O2SAT 18
[2020-08-30 03:56] LABS: RBC Red Blood Cell Count 3.51 M/uL (3.86-4.86)
[2020-08-30 04:12] LABS: Ferritin 92.4 ng/mL (8-388); Folic Acid, (Folate) 7.3 ng/mL (3.1-17.5); Potassium 4.1 mmol/L (3.5-5.1)
[2020-08-30] MEDS: HYDRALAZINE HCL 25 MG TABLET PO SCH ×2 (09:12→13:49)
[2020-08-30] MEDS: lisinopriL 5 MG TAB PO SCH (09:12)
[2020-08-30] MEDS: FUROSEMIDE 20 MG TABLET PO SCH (09:13)
--- NOTE | 2020-08-30 10:22 | P.PN ---
Subjective Date of Service: 08/30/20 Primary Care Provider: None Subjective 35-year-old Afro-Australian female with PMHx ofr mild anemia presents emergency department for edema over the course of the last 2 weeks and nausea vomiting, diarrhea for 1 day. 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
[2020-08-30] MEDS ORDERED: NA CHLORIDE 0.9% 1,000 ML ONE (10:26)
[2020-08-30] MEDS ORDERED: MIDAZOLAM HCL 2 MG/2 ML INJ ONE ×2 (10:46→10:48)
[2020-08-30] MEDS ORDERED: FLUMAZENIL 0.1 MG/ML (5 mL VIAL) IV ONE (10:47)
[2020-08-30] MEDS ORDERED: FENTANYL CITR 100 MCG/2 ML ONE ×2 (10:47→10:48)
[2020-08-30] MEDS ORDERED: NALOXONE 0.4 MG/ML VIAL ONE (10:48)
[2020-08-30 12:32] VITALS: BP 132/83; TEMP 97.1
--- NOTE | 2020-08-30 13:09 | RAD REPORT ---
EXAM DESCRIPTION: CT - Renal Biopsy CT - 08/30/2020 11:46 am CLINICAL HISTORY: Renal injury/nephrotic syndrome TECHNIQUE: The risks, benefits alternatives to the procedure were explained to the patient and infor med consent obtained Conscious sedation was performed for approximately 30 minutes. A nurse monitored vital signs througho ut the examination 2 milligrams Versed and 70 micrograms fentanyl administered intravenously All CT scans are performed using dose optimization technique as appropriate and may include automated exposure control or mA/KV adjustment according to patient size. The skin, subcutaneous tissue and musculature were anesthetized Lidocaine. Under CT guidance a 17 gauge needle was placed into the posterior aspect of the lower pole of the lef t kidney. An 18 gauge needle was then placed through this and 2 two centimeter core specimens obtaine d and given to pathology The post biopsy images do not demonstrate a hematoma. Patient experienced no immediate complication IMPRESSION: Two core biopsies of the left kidney
--- NOTE | 2020-08-30 15:19 | P.DS ---
Admission Date: 08/25/20 Discharge Date: 08/30/20 Primary Care Provider: None Disposition: ROUTINE DISCHARGE Discharge Condition: GOOD - Problems (1) Nephrotic syndrome Current Visit: Yes Status: Acute Brief History of Present Illness: Please refer to H&P Hospital Course: Patient is a 35 year old female without past medical history was brought into the hospital with for janina orbital edema and and signs of volume overload. She was found to have nephrotic syndrome. Geology is on cleared this time but nephrology is considering focal segmental glomerulosclerosis in the differentials. She underwent a renal biopsy on 08/30/2020. She tolerated the procedure well. She was monitor for approximately 4 hrs. I discussed plan of care with Nephrology and we agreed on discharging her on furosemide and follow-up with Nephrology as outpatient addition, patient will also be on atorvastatin, hydralazine and lisinopril Vital Signs/Physical Exam: Temp Pulse Resp BP Pulse Ox 97.1 F 84 18 132/83 100 08/30/20 12:00 08/30/20 12:00 08/30/20 12:00 08/30/20 12:00 08/30/20 12:00 General: In no apparent distress, Cooperative HEENT: Other (Janina-orbital edema, bilaterally) Neck: Supple, JVD not distended Respiratory: Clear to auscultation bilaterally, Normal air movement Cardiovascular: Normal pulses, Regular rate/rhythm, Normal S1 S2, Edema Musculoskeletal: No clubbing, No contractures, No erythema, No tenderness, No warmth, Swelling Integumentary: No rashes, No breakdown, No significant lesion, No tenderness/swelling, No erythema, No warmth, No cyanosis Neurological: Normal speech, Normal tone, Normal affect Laboratory Data at Discharge: WBC 6.0 K/uL (4.3-10.9) D 08/29/20 05:32 Hgb 9.6 g/dL (12.0-15.0) L 08/29/20 05:32 Hct 28.8 % (36.0-45.0) L 08/29/20 05:32 Plt Count 221 K/uL (152-406) 08/29/20 05:32 PT 9.6 SECONDS (9.5-12.5) 08/25/20 20:10 INR 0.81 08/25/20 20:10 APTT 26.1 SECONDS (24.3-36.9) 08/30/20 09:31 Sodium 141 mmol/L (136-145) 08/30/20 03:05 Potassium 4.1 mmol/L (3.5-5.1) 08/30/20 03:05 BUN 17 mg/dL (7-18) 08/30/20 03:05 Creatinine 1.18 mg/dL (0.55-1.3) 08/30/20 03:05 Glucose 81 mg/dL (74-106) 08/30/20 03:05 Uric Acid 6.4 mg/dL (2.6-6.0) H 08/27/20 06:07 Phosphorus 4.0 mg/dL (2.5-4.9) 08/30/20 03:05 Magnesium 2.1 mg/dL (1.8-2.4) 08/29/20 05:32 Total Bilirubin 0.1 mg/dL (0.2-1.0) L 08/29/20 05:32 AST 20 U/L (15-37) 08/29/20 05:32 ALT 15 U/L (12-78) 08/29/20 05:32 Alkaline Phosphatase 60 U/L (45-117) 08/29/20 05:32 Triglycerides 154 mg/dL (<150) H 08/26/20 05:56 Cholesterol 310 mg/dL (<200) H 08/26/20 05:56 HDL Cholesterol 43 mg/dL (40-60) 08/26/20 05:56 Cholesterol/HDL Ratio 7.21 08/26/20 05:56 Lipase 159 U/L (73-393) 08/25/20 20:10 Home Medications: Atorvastatin Calcium [Lipitor*] 20 mg PO BEDTIME #30 tab 08/30/20 Furosemide [Lasix*] 20 mg PO BIDL #60 tab 08/30/20 Hydralazine [Apresoline*] 50 mg PO TID #90 tab 08/30/20 lisinopriL [Prinivil*] 2.5 mg PO DAILY #30 tab 08/30/20 New Medications: Hydralazine [Apresoline*] 50 mg PO TID #90 tab Furosemide [Lasix*] 20 mg PO BIDL #60 tab Atorvastatin Calcium [Lipitor*] 20 mg PO BEDTIME #30 tab lisinopriL [Prinivil*] 2.5 mg PO DAILY #30 tab Diet: Low sodium Followup: Mynor Adam MD [ACTIVE - CAN ADMIT] -
[2020-08-31 16:19] LABS: HIV AG/AB 4TH GEN Non-reactive (Non-reactive)
[2020-09-01 04:37] LABS: HBsAG Nonreactive (Nonreactive)
[2020-09-02 05:41] LABS: Albumin, (SPE) 1.7 g/dL (3.8-4.8); Alpha-1-Globulins 0.2 g/dL (0.2-0.3); Alpha-2-Globulins 0.7 g/dL (0.5-0.9); Gamma Globulins 1.4 g/dL (0.8-1.7); INTERPRETATION REPORT
[2020-09-03 05:35] LABS: Albumin, (SPE) 1.4 g/dL (3.8-4.8); Alpha-1-Globulins 0.2 g/dL (0.2-0.3); Alpha-2-Globulins 0.6 g/dL (0.5-0.9); Gamma Globulins 1.2 g/dL (0.8-1.7); INTERPRETATION REPORT
[2020-09-05 10:32] LABS: Vitamin D 1,25-Dihydroxy Total <8 pg/mL (18-72); Vitamin D,1,25-OH2, D2 <8 pg/mL
== END 2020-08-30 15:44 | disposition home or self-care (01) | DRG 700 ==
LOC: ER 18:34 → ERHOLD 22:16 → OBSVTOIN 22:16 → 2ND 22:59
PROVIDERS: ADMIT Hospitalist; ATTEND Internal Medicine
PROC: 0TB13ZX Excision of Left Kidney, Percutaneous Approach, Diagnostic (ICD-10-PCS; principal; 2020-08-30)
DX: N04.9 Nephrotic syndrome with unspecified morphologic changes (principal); E88.09 Other disorders of plasma-protein metabolism, not elsewhere classified; K52.9 Noninfective gastroenteritis and colitis, unspecified; E78.5 Hyperlipidemia, unspecified; N17.9 Acute kidney failure, unspecified; R60.9 Edema, unspecified; E66.9 Obesity, unspecified; Z68.24 Body mass index [BMI] 24.0-24.9, adult; Z98.51 Tubal ligation status; Z88.1 Allergy status to other antibiotic agents
CPT/HCPCS: 36415; 71045; 74177; 80048; 80053; 80061; 80069; 80076; 80307; 81003; 82040; 82570; 82652; 82728; 82746; 83520; 83540; 83690; 83735; 83880; 83970; 84145; 84156; 84165; 84439; 84443; 84466; 84484; 84550; 85025; 85027; 85044; 85610; 85730; 86021; 86038; 86160; 86225; 86317; 86334; 86430; 86705; 86706; 86803; 87340; 87389; 88300; 93005; 93306; 96374; 99285; J0360; J1644; J1940; J2250; J2270; J2310; J2405; J3010; J7030; J7512; Q9967

== ENCOUNTER 2020-10-19 08:04 | Emergency (ER) | payer SELFPAY ==
--- OUTSIDE RECORDS SUMMARY | 2020-10-19 08:06 | XMS REPORT | Summary of Care ---
:1985 Author Organization [facility] Address [address] [place] [address] Care Team Providers Name Role Phone Pcp, Patient Does Not Have A Primary Care Provider +[id number] Reason for Visit Reason Comments Hypertension Auth/Cert Status Reason Specialty Diagnoses / Referred By Referred To Procedures Contact Contact Emergency Medicine Diagnoses [facility] Emergency Dept [address] [place] [address] Fax: Encounter Details Date Type Department Care Team Description 09/05/2020 Emergency ADC-Emergency Depart ment Joe Morrell, DO [address] [facility] [address] [place] [address] [address] [place], [place] [address] Allergies Active Allergy Reactions Severity Noted Date Comments Sulfa (Sulfonamide Antibiotics) Rash 0 documented as of this encounter (statuses as of 09/05/2020) Medications Not on filedocumented as of this encounter (statuses as of 09/05/2020) Active Problems Not on filedocumented as of this encounter (statuses as of 09/05/2020) Social History Tobacco Use Types Packs/Day Years Used Date Never Assessed Sex Assigned at Date Recorded Not on file COVID-19 Exposure Response Date Recorded In the last month, have you been in contact with No / Unsure 09/05/2020 8:58 AM CDT someone who was confirmed or suspected to have Coronavirus / COVID-19? documented as of this encounter Last Filed Vital Signs Vital Sign Reading Time Taken Comments Blood Pressure 144/89 09/05/2020 9:07 AM CDT Pulse 83 09/05/2020 9:07 AM CDT Temperature 37.2 C (98.9 F) 09/05/2020 9:07 AM CDT Respiratory Rate 18 09/05/2020 9:07 AM CDT Oxygen Saturation 100% 09/05/2020 9:07 AM CDT Inhaled Oxygen Concentration - - Weight 68.5 kg (151 lb) 09/05/2020 9:07 AM CDT Height - - Body Mass Index - - documented in this encounter ED Notes Jadon Jose RN - 09/05/2020 9:05 AM CDTArrives to ED concerned about continued elevated B/P. Was recently [facility] to [facility]. Reports continued elevated blood pressure. No clear directions on follow up. Joe Luong DO - 09/05/2020 8:59 AM CDTMEDICAL SCREENING EXAM Chief Complaint: elevated blood pressure HPI: Sha Hernandez is a 35 year old female with elevated blood pressure without symptoms. Was seen at [facility] and diagnosed with nephrotic syndrome. Started taking HTN medications and BP still elevated. Concerned the number is not normal. Has follow-up with Negr[facility] Pertinent Past Medical History: Nephrotic syndrome. Focused Physical Exam: NCAT PEERL Unlabored respirations without difficulty Speaks in full sentences. Moves all fours No edema. No FND. Follow-up with Dr. Rees. Take medications as prescribed. Log BP. Return precautions given if symptoms arise. In ED patients with asymptomatic markedly elevated blood pressure, routine screening for acute target organ injury (eg, serum creatinine, urinalysis, ECG) is not required. (2) In select patient populations (eg, poor follow-up), screening for an elevated serum creatinine level may identify kidney injury that affects disposition (eg, hospital admission). <120 diastolic No screening ED workup --> home with outpatient treatment >210 systolic or >120-130 diastolic Chem 7 (creatinine) --> home with outpatient treatment if no evidence of acute renal failure "No other diagnostic screening tests (e.g. UA, ECG) appear to be useful Clinical Policy: Critical Issues in the Evaluation and Management of Adult Patients in the EmergencyDepartment with Asymptomatic Elevated Blood Pressure. ACE Clinical Policies Subcommittee on Asymptomatic Hypertension. Annals of Emergency Medicine. 2013; 62(1):59-63. documented in this encounter Miscellaneous Notes ED Nurse Note - Jadon Jose RN - 09/05/2020 9:15 AM CDTProvided education on blood pressure medications, diuretics and her statin drug. documented in this encounter Plan of Treatment Health Maintenance Due Date Last Done Comments VARICELLA VACCINES (1 of 2 - 1988 2-dose childhood series) Depression Screening 1999 DTaP,Tdap,and Td Vaccines (1 - 2006 Tdap) PAP SMEAR 2008 INFLUENZA VACCINE (#1) 2020 PNEUMOCOCCAL 0-64 YEARS COMBINED Aged Out No longer eligible based on SERIES patient's age to complete this topic documented as of this encounter Procedures Procedure Name Priority Date/Time Associated Diagnosis Comme nts NOTICE OF PRIVACY Routine 09/05/2020 8:58 AM CDT PRACTICES CONSENT/REFUSAL FOR Routine 09/05/2020 8:58 AM CDT DIAGNOSIS AND TREATMENT documented in this encounter Results Not on filedocumented in this encounter
--- OUTSIDE RECORDS SUMMARY | 2020-10-19 08:06 | XMS REPORT | Continuity of Care Document ---
:1985 Author Organization [facility] t Address [address] [place] [address] Care Team Providers Name Role Phone Morrell DO Attending Clinician Problems This patient has no known problems. Allergies, Adverse Reactions, Alerts This patient has no known allergies or adverse reactions. Medications This patient has no known medications. Procedures This patient has no known procedures. Encounters Start End Encounter Admission Attending Care Care Encounter Source Date/Time Date/Time Type Type Clinicians Facility Department ID 2020-09-05 2020-09-05 Emergency Singer [facility] [id number] 09:08:00 09:48:00 Joe Juarez [id number] [place] [id number] [place] [id number] Results This patient has no known results.
[2020-10-19] MEDS ORDERED: MORPHINE 4 MG/ML SYR ONE (09:21)
[2020-10-19] MEDS ORDERED: NA CHLORIDE 0.9% 1,000 ML ONE (09:22)
[2020-10-19] MEDS ORDERED: ONDANSETRON 4 MG/2 ML VIAL ONE (09:22)
[2020-10-19 09:56] LABS: Urine Blood 2+ (NEG); Urine Glucose NEGATIVE (NEG); Urine Protein 3+ (NEG); Urine Specific Gravity 1.025 (1.005-1.030)
[2020-10-19 09:59] LABS: Absolute Lymphocytes (CBC) 1.5 K/uL (0.7-4.9); Hematocrit 34.8 % (36.0-45.0); Lymphocytes % 18.4 % (15.3-44.8); MPV 9.7 fL (7.6-11.3); RBC Red Blood Cell Count 4.31 M/uL (3.86-4.86)
[2020-10-19 10:11] LABS: ALT/SGPT 70 U/L (12-78); AST/SGOT 61 U/L (15-37); Alkaline Phosphatase 92 U/L (45-117); BUN Blood Urea Nitrogen 25 mg/dL (7-18); Bicarbonate 25 mmol/L (21-32); Bilirubin Direct < 0.1 mg/dL (0-0.2); Glucose Level 101 mg/dL (74-106); Lipase 137 U/L (73-393); Potassium 4.8 mmol/L (3.5-5.1); Protein, Total 5.5 g/dL (6.4-8.2); Sodium Level 142 mmol/L (136-145)
[2020-10-19 10:19] LABS: Bilirubin Total < 0.1 mg/dL (0.2-1.0)
--- NOTE | 2020-10-19 10:39 | ER ---
Nurse's Notes [facility] Name: Sha Hernandez Age: 35 yrs Sex: Female : 1985 Arrival Date: 10/19/2020 Time: 08:09 Bed 18 Private MD: Diagnosis: Nausea with vomiting, unspecified Presentation: 10/19 08:25 Chief complaint: Patient states: N/V and abd pain that began this morning. Pt reports ss she has noticed increased swelling to her bilateral lower extremities over the past few days. Pt was admitted to the hospital a month or so ago and states that they gave her medicine and she had a kidney biopsy because of her high blood pressure, but has not yet followed up. Coronavirus screen: Client denies travel out of the [place] in the last 14 days. Ebola Screen: Patient denies exposure to infectious person. Patient denies travel to an Ebola-affected area in the 21 days before illness onset. Initial Sepsis Screen: Does the patient meet any 2 criteria? No. Patient's initial sepsis screen is negative. Does the patient have a suspected source of infection? No. Patient's initial sepsis screen is negative. Risk Assessment: Do you want to hurt yourself or someone else? Patient reports no desire to harm self or others. Onset of symptoms was October 19, 2020. 08:25 Method Of Arrival: Ambulatory ss 08:25 Acuity: BEATA 3 ss Triage Assessment: 08:30 General: Appears in no apparent distress. uncomfortable, Behavior is cooperative, bp appropriate for age, anxious. Pain: Complains of pain in abdomen. EENT: No deficits noted. Neuro: No deficits noted. Cardiovascular: No deficits noted. Respiratory: No deficits noted. GI: Reports lower abdominal pain, upper abdominal pain, nausea, vomiting. : No signs and/or symptoms were reported regarding the genitourinary system. Derm: No deficits noted. Musculoskeletal: No deficits noted. 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 - Social history:: Smoking status: Patient denies any tobacco usage or history of. Patient/guardian denies using alcohol, street drugs, The patient lives with family. - Family history:: not pertinent. - Hospitalizations: : No recent hospitalization is reported. Screenin:30 Abuse screen: Denies threats or abuse. Denies injuries from another. Nutritional bp screening: No deficits noted. Tuberculosis screening: No symptoms or risk factors identified. Fall Risk None identified. Assessment: 08:30 General: SEE TRIAGE NOTE. GI: Abdomen is non-distended. bp 10:00 Reassessment: No changes from previously documented assessment. Patient and/or family bp updated on plan of care and expected duration. Pain level reassessed. Patient is alert, oriented x 3, equal unlabored respirations, skin warm/dry/pink. IVF INFUSING. 11:02 Reassessment: D/C ON HOLD FOR IVF COMPLETION. bp 12:44 Reassessment: PT D/C HOME AMBULATORY WITH FAMILY. bp Vital Signs: 08:25 BP 152 / 110; Pulse 69; Resp 16; Temp 97.3(TE); Pulse Ox 100% on R/A; Weight 65.77 kg; ss Height 5 ft. 7 in. (170.18 cm); Pain 9/10; 10:00 BP 144 / 85; Pulse 60; Resp 16; Pulse Ox 100% ; bp 11:02 BP 124 / 75; Pulse 67; Resp 16; Pulse Ox 100% ; bp 12:00 BP 112 / 66; Pulse 63; Resp 16; Pulse Ox 100% ; bp 12:45 BP 111 / 71; Pulse 65; Resp 17; Temp 98.5; Pulse Ox 100% ; bp 08:25 Body Mass Index 22.71 (65.77 kg, 170.18 cm) ED Course: 08:09 Patient arrived in ED. ds1 08:13 Nan De Oliveira MD is Attending Physician. ma2 08:18 Jose Moulton, NEFTALY is Primary Nurse. bp 08:29 Triage completed. ss 08:30 Patient has correct armband on for positive identification. Bed in low position. Call bp light in reach. Side rails up X2. Adult w/ patient. 08:33 Arm band placed on right wrist. ss 09:00 Inserted saline lock: 20 gauge in right antecubital area, using aseptic technique. bp Blood collected. 12:46 No provider procedures requiring assistance completed. IV discontinued, intact, bp bleeding controlled, No redness/swelling at site. Pressure dressing applied. Administered Medications: 09:42 Drug: NS 0.9% 1000 ml Route: IV; Rate: 1000 ml; Site: right antecubital; ss 12:47 Follow up: IV Status: Completed infusion; IV Intake: 1000ml bp 09:45 Drug: Zofran (Ondansetron) 4 mg Route: IVP; Site: right antecubital; ss 10:18 Follow up: Response: No adverse reaction bp 09:49 Drug: morphine 4 mg Route: IVP; Site: right antecubital; ss 10:18 Follow up: Response: Pain is decreased bp Intake: 12:47 IV: 1000ml; Total: 1000ml. bp Outcome: 10:39 Discharge ordered by . rico 12:46 Discharged to home ambulatory. bp 12:46 Condition: stable 12:46 Discharge instructions given to patient, family, Instructed on discharge instructions, follow up and referral plans. medication usage, Demonstrated understanding of instructions, follow-up care, medications, Prescriptions given X 2. 12:47 Patient left the ED. bp Signatures: Kylee Alvarenga ds1 Naima Dudley RN RN Jose Moulton RN RN bp Nan De Oliveira MD MD ma2
--- NOTE | 2020-10-19 10:39 | EDPHYS ---
Physician Documentation [facility] Name: Sha Hernandez Age: 35 yrs Sex: Female : 1985 Arrival Date: 10/19/2020 Time: 08:09 Bed 18 Private MD: ED Physician Nan De Oliveira HPI: 10/19 10:03 This 35 yrs old Black Female presents to ER via Ambulatory with complaints of ma2 Nausea/Vomiting. 10:03 The patient presents to the emergency department with nausea, vomiting. Onset: The ma2 symptoms/episode began/occurred gradually, 1 day(s) ago. Possible causes: unknown. Associated signs and symptoms: Pertinent negatives: belching, diarrhea, fever, flatulence. Severity of symptoms: At their worst the symptoms were moderate in the emergency department the symptoms are unchanged. The patient has not experienced similar symptoms in the past. she is being worked up for membranous glomerulonephritis (possible lupus related), she is here with epigastric abd pain and vomiting, x 4 hrs, never had that before, had a normal ct abd few weeks ago, . 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 - Social history:: Smoking status: Patient denies any tobacco usage or history of. Patient/guardian denies using alcohol, street drugs, The patient lives with family. - Family history:: not pertinent. - Hospitalizations: : No recent hospitalization is reported. ROS: 10:03 Constitutional: Negative for fever, chills, and weight loss. ma2 10:03 All other systems are negative. Exam: 10:03 Constitutional: This is a well developed, well nourished patient who is awake, alert, ma2 and in no acute distress. Head/Face: Normocephalic, atraumatic. Eyes: Pupils equal round and reactive to light, extra-ocular motions intact. Lids and lashes normal. Conjunctiva and sclera are non-icteric and not injected. Cornea within normal limits. Periorbital areas with no swelling, redness, or edema. ENT: Nares patent. No nasal discharge, no septal abnormalities noted. Tympanic membranes are normal and external auditory canals are clear. Oropharynx with no redness, swelling, or masses, exudates, or evidence of obstruction, uvula midline. Mucous membranes moist. Neck: Trachea midline, no thyromegaly or masses palpated, and no cervical lymphadenopathy. Supple, full range of motion without nuchal rigidity, or vertebral point tenderness. No Meningismus. Chest/axilla: Normal chest wall appearance and motion. Nontender with no deformity. No lesions are appreciated. Cardiovascular: Regular rate and rhythm with a normal S1 and S2. No gallops, murmurs, or rubs. Normal PMI, no JVD. No pulse deficits. Respiratory: Lungs have equal breath sounds bilaterally, clear to auscultation and percussion. No rales, rhonchi or wheezes noted. No increased work of breathing, no retractions or nasal flaring. Abdomen/GI: Soft, non-tender, with normal bowel sounds. No distension or tympany. No guarding or rebound. No evidence of tenderness throughout. Back: No spinal tenderness. No costovertebral tenderness. Full range of motion. Skin: Warm, dry with normal turgor. Normal color with no rashes, no lesions, and no evidence of cellulitis. MS/ Extremity: Pulses equal, no cyanosis. Neurovascular intact. Full, normal range of motion. Neuro: Awake and alert, GCS 15, oriented to person, place, time, and situation. Cranial nerves II-XII grossly intact. Motor strength 5/5 in all extremities. Sensory grossly intact. Cerebellar exam normal. Normal gait. Vital Signs: 08:25 BP 152 / 110; Pulse 69; Resp 16; Temp 97.3(TE); Pulse Ox 100% on R/A; Weight 65.77 kg; ss Height 5 ft. 7 in. (170.18 cm); Pain 9/10; 10:00 BP 144 / 85; Pulse 60; Resp 16; Pulse Ox 100% ; bp 11:02 BP 124 / 75; Pulse 67; Resp 16; Pulse Ox 100% ; bp 12:00 BP 112 / 66; Pulse 63; Resp 16; Pulse Ox 100% ; bp 12:45 BP 111 / 71; Pulse 65; Resp 17; Temp 98.5; Pulse Ox 100% ; bp 08:25 Body Mass Index 22.71 (65.77 kg, 170.18 cm) ss MDM: 08:13 Patient medically screened. [facility] 10:03 Differential diagnosis: gastritis, pancreatitis, appendicitis, viral gastroenteritis, ma2 gastroenteritis. 10:39 Data reviewed: vital signs, nurses notes. Counseling: I had a detailed discussion with ma2 the patient and/or guardian regarding: the historical points, exam findings, and any diagnostic results supporting the discharge/admit diagnosis, the presence of at least one elevated blood pressure reading (>120/80) during this emergency department visit, the need for outpatient follow up. Response to treatment: the patient's symptoms have markedly improved after treatment. 10/19 08:48 Order name: BMP; Complete Time: 10: [facility] 10/19 08:48 Order name: CBC with Diff; Complete Time: 10: [facility] 10/19 08:48 Order name: Hepatic Function; Complete Time: 10: [facility] 10/19 08:48 Order name: Lipase; Complete Time: 10: [facility] 10/19 09:08 Order name: Urine Dipstick--Ancillary (enter results); Complete Time: 10: 10/19 09:08 Order name: Urine --Ancillary (enter results); Complete Time: 10: 10/19 08:48 Order name: IV Saline Lock; Complete Time: 09:46 [facility] 10/19 08:48 Order name: Labs collected and sent; Complete Time: 09:50 [facility] 10/19 08:48 Order name: NPO; Complete Time: 08:49 [facility] 10/19 08:48 Order name: Urine Dipstick-Ancillary (obtain specimen); Complete Time: 09:46 [facility] 10/19 09:16 Order name: Labs - recollect needed: recollect the cbc and chemistry; Complete Time: eb 09:46 Administered Medications: 09:42 Drug: NS 0.9% 1000 ml Route: IV; Rate: 1000 ml; Site: right antecubital; ss 12:47 Follow up: IV Status: Completed infusion; IV Intake: 1000ml bp 09:45 Drug: Zofran (Ondansetron) 4 mg Route: IVP; Site: right antecubital; ss 10:18 Follow up: Response: No adverse reaction bp 09:49 Drug: morphine 4 mg Route: IVP; Site: right antecubital; 10:18 Follow up: Response: Pain is decreased bp Disposition: 10/19/20 10:39 Discharged to Home. Impression: Nausea with vomiting, unspecified. - Condition is Stable. - Discharge Instructions: Nausea and Vomiting, Adult. - Prescriptions for Zofran 4 mg Oral Tablet - take 1 tablet by ORAL route every 12 hours As needed; 20 tablet. Pepcid 20 mg Oral Tablet - take 1 tablet by ORAL route once daily for 10 days; 10 tablet. - Medication Reconciliation Form, Thank You Letter, Antibiotic Education, Prescription Opioid Use form. - Follow up: Private Physician; When: Tomorrow; Reason: Continuance of care. Signatures: Dispatcher [employer] EDMS Naima Dudley RN RN Jose Walls RN RN bp Alzahri, Mohammad, MD MD ma2 Sun Alvarado Corrections: (The following items were deleted from the chart) 12:47 10:39 10/19/2020 10:39 Discharged to Home. Impression: Nausea with vomiting, bp unspecified. Condition is Stable. Forms are Medication Reconciliation Form, Thank You Letter, Antibiotic Education, Prescription Opioid Use. Follow up: Private Physician; When: Tomorrow; Reason: Continuance of care. ma2
[2020-10-19 13:15] VITALS: O2SAT 100
[2020-10-19 13:22] VITALS: BP 111/71; TEMP 98.5
== END 2020-10-19 12:47 | disposition home or self-care (01) ==
LOC: ER 08:04
DX: R11.2 Nausea with vomiting, unspecified (principal); I10 Essential (primary) hypertension; Z88.2 Allergy status to sulfonamides
CPT/HCPCS: 36415; 80048; 80076; 81003; 81025; 83690; 85025; 96361; 96374; 96375; 99284; J2405; J7030

== ENCOUNTER 2021-01-28 22:42 | Emergency (ER) | payer SELFPAY ==
--- OUTSIDE RECORDS SUMMARY | 2021-01-28 22:44 | XMS REPORT | Continuity of Care Document ---
:1985 Author Organization [facility] t Address [address] [place] [address] Care Team Providers Name Role Phone Lizzy Quiros Attending Clinician Problems This patient has no known problems. Allergies, Adverse Reactions, Alerts This patient has no known allergies or adverse reactions. Medications This patient has no known medications. Procedures This patient has no known procedures. 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
[2021-01-29] MEDS ORDERED: MORPHINE 4 MG/ML SYR ONE (00:33)
[2021-01-29] MEDS ORDERED: METOCLOPRAMIDE 10 MG/2mL INJ ONE (00:33)
[2021-01-29] MEDS ORDERED: FAMOTIDINE 20 MG/2 ML VIAL IV ONE (00:34)
[2021-01-29 00:52] LABS: Absolute Lymphocytes (CBC) 1.2 K/uL (0.7-4.9); Basophils % 0.8 % (0-1.3); Lymphocytes % 9.6 % (15.3-44.8); MPV 9.9 fL (7.6-11.3); RBC Red Blood Cell Count 4.04 M/uL (3.86-4.86)
[2021-01-29 01:04] LABS: ALT/SGPT 101 U/L (12-78); AST/SGOT 75 U/L (15-37); Albumin 1.3 g/dL (3.4-5.0); Alkaline Phosphatase 128 U/L (45-117); BUN Blood Urea Nitrogen 17 mg/dL (7-18); Bicarbonate 24 mmol/L (21-32); Bilirubin Direct < 0.1 mg/dL (0-0.2); Bilirubin Total 0.1 mg/dL (0.2-1.0); Glucose Level 123 mg/dL (74-106); Lipase 66 U/L (73-393); Potassium 4.9 mmol/L (3.5-5.1); Sodium Level 143 mmol/L (136-145); Troponin (Emerg Dept Use Only) 0.03 ng/mL (0.0-0.045)
[2021-01-29 02:24] LABS: Blood Morphology Comment NOTED (NOT SEEN); Burr Cells 1+; Ovalocytes 2+; Platelet Estimate ADEQ
[2021-01-29 02:25] LABS: Urine Blood 2+ (NEG); Urine Glucose NEGATIVE (NEG); Urine Protein 3+ (NEG); Urine Specific Gravity >1.030 (1.005-1.030); Urine pH 5.5 (5.0-7.0)
--- NOTE | 2021-01-29 03:38 | EDPHYS ---
Physician Documentation [facility] Name: Sha Hernandez Age: 35 yrs Sex: Female : 1985 Arrival Date: 01/28/2021 Time: 22:50 Bed 26 Private MD: PAUL Physician Vladimir Gifford HPI: 01/29 00:18 This 35 yrs old Black Female presents to ER via Wheelchair with complaints of Chest mh7 Pain > 30 y/o. 00:19 The patient presents with abdominal pain in the epigastric area. Onset: The mh7 symptoms/episode began/occurred this morning. The symptoms do not radiate. Associated signs and symptoms: Pertinent positives: nausea and vomiting, Pertinent negatives: anorexia, blood in stools, chest pain, constipation, diarrhea, dysuria, fever, headache, hematuria, palpitations, shortness of breath, vaginal discharge, vomiting blood. The symptoms are described as intermittent, vague, waxing/waning. Modifying factors: The symptoms are alleviated by nothing, the symptoms are aggravated by food. Severity of pain: At its worst the pain was moderate today, in the emergency department the pain is unchanged. 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 - Social history:: Smoking status: unknown. ROS: 01/29 00:19 Constitutional: Negative for fever, chills, and weight loss, Eyes: Negative for injury, mh7 pain, redness, and discharge, ENT: Negative for injury, pain, and discharge, Neck: Negative for injury, pain, and swelling, Cardiovascular: Negative for chest pain, palpitations, and edema, Respiratory: Negative for shortness of breath, cough, wheezing, and pleuritic chest pain, Back: Negative for injury and pain, : Negative for injury, bleeding, discharge, and swelling, MS/Extremity: Negative for injury and deformity, Skin: Negative for injury, rash, and discoloration, Neuro: Negative for headache, weakness, numbness, tingling, and seizure, Psych: Negative for depression, anxiety, suicide ideation, homicidal ideation, and hallucinations, Allergy/Immunology: Negative for hives, rash, and allergies, Endocrine: Negative for neck swelling, polydipsia, polyuria, polyphagia, and marked weight changes, Hematologic/Lymphatic: Negative for swollen nodes, abnormal bleeding, and unusual bruising. Exam: 00:19 Head/Face: Normocephalic, atraumatic. Eyes: Pupils equal round and reactive to light, mh7 extra-ocular motions intact. Lids and lashes normal. Conjunctiva and sclera are non-icteric and not injected. Cornea within normal limits. Periorbital areas with no swelling, redness, or edema. Neck: Trachea midline, no thyromegaly or masses palpated, and no cervical lymphadenopathy. Supple, full range of motion without nuchal rigidity, or vertebral point tenderness. No Meningismus. Chest/axilla: Normal chest wall appearance and motion. Nontender with no deformity. No lesions are appreciated. Cardiovascular: Regular rate and rhythm with a normal S1 and S2. No gallops, murmurs, or rubs. Normal PMI, no JVD. No pulse deficits. Respiratory: Lungs have equal breath sounds bilaterally, clear to auscultation and percussion. No rales, rhonchi or wheezes noted. No increased work of breathing, no retractions or nasal flaring. 00:19 Back: No spinal tenderness. No costovertebral tenderness. Full range of motion. Skin: Warm, dry with normal turgor. Normal color with no rashes, no lesions, and no evidence of cellulitis. MS/ Extremity: Pulses equal, no cyanosis. Neurovascular intact. Full, normal range of motion. Neuro: Awake and alert, GCS 15, oriented to person, place, time, and situation. Cranial nerves II-XII grossly intact. Motor strength 5/5 in all extremities. Sensory grossly intact. Cerebellar exam normal. Normal gait. Psych: Awake, alert, with orientation to person, place and time. Behavior, mood, and affect are within normal limits. 00:19 Constitutional: The patient appears in no acute distress, alert, awake, uncomfortable. 00:19 Abdomen/GI: Inspection: abdomen appears normal, Bowel sounds: normal, in all quadrants, Palpation: moderate abdominal tenderness, in the epigastric area, mass, is not appreciated, rebound tenderness, is not appreciated, voluntary guarding, is not appreciated, involuntary guarding, is not appreciated, no appreciated organomegaly, Rectal exam: the exam is deferred, because of patient request, Indicators: McBurney's point is not tender, Dean's sign is negative, Rovsing's sign is negative, Obturator sign is negative, Psoas sign is negative, Liver: no appreciated palpable abnormalities, Hernia: not appreciated. Vital Signs: 01/28 23:03 BP 116 / 106; Resp 19; Temp 97.7; Pulse Ox 99% ; Pain 10/10; rr5 23:37 Pulse 71; Resp 18; Pulse Ox 100% on R/A; Pain 10/10; fu 01/29 00:30 BP 138 / 90; Pulse 68; Resp 18; Pulse Ox 96% on R/A; Pain 10/10; fu 01:16 BP 116 / 67; Pulse 75; Pulse Ox 99% on R/A; fu 02:47 BP 135 / 79; Pulse 50; Resp 16; Pulse Ox 94% on R/A; Pain 0/10; fu MDM: 03:36 Differential diagnosis: bowel obstruction, cholecystitis, Cholelithiasis, mh7 diverticulitis, gastritis, gastroesophageal reflux disease, non-specific abd pain, pancreatitis, Ureterolithiasis, urinary tract infection. Data reviewed: vital signs, nurses notes, lab test result(s), cardiac enzymes, CBC, electrolytes, urinalysis, UPT: negative EKG, radiologic studies, CT scan. Data interpreted: Pulse oximetry: on room air is 96 %. Interpretation: normal. Counseling: I had a detailed discussion with the patient and/or guardian regarding: the historical points, exam findings, and any diagnostic results supporting the discharge/admit diagnosis, lab results, radiology results, the need for outpatient follow up, to return to the emergency department if symptoms worsen or persist or if there are any questions or concerns that arise at home. Response to treatment: the patient's symptoms have resolved after treatment, the patient's blood pressure is in an acceptable range, mental status has returned to baseline, the patient no longer shows bradycardia, the patient is not short of breath, the patient is not tachycardic, the patient's pain is gone, the patient's temperature has normalized. 03:[address] [facility] 01/28 23:51 Order name: Basic Metabolic Panel [facility] 01/28 23:51 Order name: CBC with Diff [facility] 01/28 23:51 Order name: Hepatic Function [facility] 01/28 23:51 Order name: Lipase [facility] 01/29 00:16 Order name: Troponin (emerg Dept Use Only) [facility] 01/29 01:04 Order name: Basic Metabolic Panel; Complete Time: 01:28 EDMS 01/29 01:04 Order name: Liver (Hepatic) Function; Complete Time: 01:28 EDMS 01/29 01:04 Order name: Troponin (Emerg Dept Use Only); Complete Time: 01:28 EDMS 01/29 01:04 Order name: Lipase; Complete Time: 01:28 EDMS 01/29 01:06 Order name: CBC with Automated Diff; Complete Time: 03:19 EDMS 01/29 01:24 Order name: Manual Differential; Complete Time: 03:19 EDMS 01/29 01:55 Order name: Urine Dipstick--Ancillary (enter results) [facility] 01/29 01:55 Order name: Urine --Ancillary (enter results) [facility] 01/29 01:55 Order name: Urine Dipstick-Ancillary; Complete Time: 03:19 EDMS 01/28 23:51 Order name: IV Saline Lock; Complete Time: 00:05 [facility] 01/28 23:51 Order name: Labs collected and sent; Complete Time: 00:17 [facility] 01/28 23:51 Order name: Urine Dipstick-Ancillary (obtain specimen); Complete Time: 03:02 [facility] 01/28 23:51 Order name: Urine Test (obtain specimen); Complete Time: 03:02 [facility] 01/28 23:51 Order name: EKG - Nurse/Tech; Complete Time: 00:05 [facility] 01/29 01:29 Order name: CT Abd/Pelvis - Without Contrast [facility] 01/29 01:56 Order name: Urine --Ancillary; Complete Time: 03:19 EDMS Administered Medications: 00:29 Drug: Reglan 10 mg Route: IVP; Site: right antecubital; fu 01:30 Follow up: Response: Nausea is decreased fu 00:30 Drug: morphine 4 mg Route: IVP; Site: right antecubital; fu 01:30 Follow up: Response: Pain is decreased fu 00:30 Drug: Pepcid 20 mg Route: IVP; Site: right antecubital; fu 01:30 Follow up: Response: No adverse reaction fu 03:30 Drug: Rocephin - (cefTRIAXone) 1 grams Route: IVPB; Infused Over: 30 mins; Site: right fu antecubital; Disposition: 01/29/21 03:38 Discharged to Home. Impression: Colitis, UTI. - Condition is Stable. - Discharge Instructions: Urinary Tract Infection, Adult, [id number], Colitis. - Prescriptions for Zofran ODT 4 mg Oral tablet,disintegrating - place 1 tablet by TRANSLINGUAL route every 8 hours As needed; 6 tablet. Bentyl 20 mg Oral Tablet - take 1 tablet by ORAL route every 6 hours As needed; 20 tablet. Flagyl 500 mg Oral Tablet - take 1 tablet by ORAL route every 8 hours for 7 days; 21 tablet. Pepcid 20 mg Oral Tablet - take 1 tablet by ORAL route every 12 hours for 5 days; 10 tablet. Cipro 500 mg Oral Tablet - take 1 tablet by ORAL route every 12 hours for 7 days; 14 tablet. - Medication Reconciliation Form, Thank You Letter, Antibiotic Education, Prescription Opioid Use form. - Follow up: Private Physician; When: 1 - 2 days; Reason: Worsening of condition, Recheck today's complaints, Continuance of care, Re-evaluation by your physician. - Problem is new. - Symptoms have improved. Signatures: Dispatcher [employer] EDAK Naif Bolivar RN RN Antonio Kauffman RN RN rr5 Vladimir Gifford MD MD 7 Corrections: (The following items were deleted from the chart) 03:55 03:38 01/29/2021 03:38 Discharged to Home. Impression: Colitis; UTI. Condition is fu Stable. Forms are Medication Reconciliation Form, Thank You Letter, Antibiotic Education, Prescription Opioid Use. Follow up: Private Physician; When: 1 - 2 days; Reason: Worsening of condition, Recheck today's complaints, Continuance of care, Re-evaluation by your physician. Problem is new. Symptoms have improved. 7
--- NOTE | 2021-01-29 03:38 | ER ---
Nurse's Notes [facility] Name: Sha Hernandez Age: 35 yrs Sex: Female : 1985 Arrival Date: 01/28/2021 Time: 22:50 Bed 26 Private MD: Diagnosis: Colitis;UTI Presentation: 01/28 23:03 Chief complaint: Patient states: chest pain and vomiting started today. Coronavirus rr5 screen: Client denies travel out of the [place] in the last 14 days. At this time, the client does not indicate any symptoms associated with coronavirus-19. Ebola Screen: Patient negative for fever greater than or equal to 101.5 degrees Fahrenheit, and additional compatible Ebola Virus Disease symptoms Patient denies exposure to infectious person. Patient denies travel to an Ebola-affected area in the 21 days before illness onset. Initial Sepsis Screen: Does the patient meet any 2 criteria? No. Patient's initial sepsis screen is negative. Does the patient have a suspected source of infection? No. Patient's initial sepsis screen is negative. Risk Assessment: Do you want to hurt yourself or someone else? Patient reports no desire to harm self or others. Onset of symptoms was January 28, 2021. 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 - Social history:: Smoking status: unknown. Screenin/08 00:31 Abuse screen: Denies threats or abuse. Nutritional screening: No deficits noted. fu Tuberculosis screening: No symptoms or risk factors identified. Fall Risk None identified. Assessment: 01/28 23:35 General: Appears uncomfortable, Behavior is calm, cooperative, appropriate for age, fu anxious. Pain: Complains of pain in chest Pain does not radiate. Pain began today. Neuro: Level of Consciousness is awake, alert, obeys commands, Oriented to person, place, time, situation, Moves all extremities. Gait is steady, Speech is normal, Facial symmetry appears normal. Cardiovascular: Reports chest pain, nausea, vomiting. Respiratory: Respiratory effort is even, unlabored, Respiratory pattern is regular. 01/29 00:45 Reassessment: Patient and/or family updated on plan of care and expected duration. Pain fu level reassessed. Patient is alert, oriented x 3, equal unlabored respirations, skin warm/dry/pink. Patient states feeling better. 02:53 Reassessment: Patient and/or family updated on plan of care and expected duration. Pain fu level reassessed. Patient is alert, oriented x 3, equal unlabored respirations, skin warm/dry/pink. Patient denies pain at this time. Vital Signs: 01/28 23:03 BP 116 / 106; Resp 19; Temp 97.7; Pulse Ox 99% ; Pain 10/10; rr5 23:37 Pulse 71; Resp 18; Pulse Ox 100% on R/A; Pain 10/10; fu 01/29 00:30 BP 138 / 90; Pulse 68; Resp 18; Pulse Ox 96% on R/A; Pain 10/10; fu 01:16 BP 116 / 67; Pulse 75; Pulse Ox 99% on R/A; fu 02:47 BP 135 / 79; Pulse 50; Resp 16; Pulse Ox 94% on R/A; Pain 0/10; fu ED Course: 01/28 22:50 Patient arrived in ED. am4 23:06 Triage completed. rr5 23:12 Naif Bolivar, NEFTALY is Primary Nurse. fu 23:21 Vladimir Gifford MD is Attending Physician. mh7 01/29 00:05 Inserted saline lock: 22 gauge in right antecubital area, using aseptic technique. fu Blood collected. 00:31 Patient has correct armband on for positive identification. Bed in low position. Call fu light in reach. Side rails up X 1. monitoring engineer on. Pulse ox on. NIBP on. 00:31 Patient vomiting bag given. fu 00:32 Patient maintains SpO2 saturation greater than 95% on room air. fu 00:47 Basic Metabolic Panel Sent. fu 00:47 CBC with Diff Sent. fu 00:47 Hepatic Function Sent. fu 00:47 Lipase Sent. fu 00:47 Troponin (emerg Dept Use Only) Sent. fu 01:00 No provider procedures requiring assistance completed. fu 01:57 Urine --Ancillary (enter results) Sent. fu 01:57 Urine Dipstick--Ancillary (enter results) Sent. fu 01:57 Manual Differential Sent. fu 02:39 CT Abd/Pelvis - Without Contrast In Process Unspecified. EDMS 03:50 IV discontinued, bleeding controlled, Pressure dressing applied. fu Administered Medications: 00:29 Drug: Reglan 10 mg Route: IVP; Site: right antecubital; fu 01:30 Follow up: Response: Nausea is decreased fu 00:30 Drug: morphine 4 mg Route: IVP; Site: right antecubital; fu 01:30 Follow up: Response: Pain is decreased fu 00:30 Drug: Pepcid 20 mg Route: IVP; Site: right antecubital; fu 01:30 Follow up: Response: No adverse reaction fu 03:30 Drug: Rocephin - (cefTRIAXone) 1 grams Route: IVPB; Infused Over: 30 mins; Site: right fu antecubital; Outcome: 03:38 Discharge ordered by MD. torres 03:53 Discharged to home ambulatory. fu 03:53 Condition: stable 03:53 Discharge instructions given to patient, Instructed on discharge instructions, follow up and referral plans. Demonstrated understanding of instructions, follow-up care, medications, Prescriptions given X 5 03:55 Patient left the ED. fu Signatures: Dispatcher [employer] EDMS Naif Bolivar RN RN Antonio Kauffman RN RN rr5 Vladimir Gifford MD MD 7 [facility]
[2021-01-29] MEDS ORDERED: CEFTRIAXONE/SWI 1gm 1 GM/10 ML SYR ONE (03:42)
[2021-01-29 04:04] VITALS: TEMP 97.7
[2021-01-29 04:09] VITALS: BP 135/79; O2SAT 94
--- NOTE | 2021-01-29 12:03 | RAD REPORT ---
EXAM DESCRIPTION: CT - Abdomen Pelvis Wo Contrast - 01/29/2021 5:06 am CLINICAL HISTORY: Abd pain;Nausea / vomiting COMPARISON: 08/25/2020 TECHNIQUE: CT of the abdomen and pelvis without IV contrast. Evaluation of the solid organs and vasc ulature is suboptimal due to lack of IV contrast. This exam was performed according to our department al dose-optimization program, which includes automated exposure control, adjustment of the mA and/or kV according to patient size and/or use of iterative reconstruction technique. FINDINGS: Lung Bases: The visualized lung bases are clear. Bones: No destructive bone lesions identified. Abdomen: Liver: The liver has normal size and density. Gallbladder: No calcified gallstones. Spleen, Pancreas, and Adrenal Glands: The spleen, pancreas, and adrenal glands are unremarkable. Kidneys: The kidneys have normal size without evidence of hydronephrosis. No obstructing ureteral tonie culi. Vasculature: The aorta and IVC have normal caliber and position. Stomach: The stomach and duodenum have normal course. Other: No free intraperitoneal air. Small amount of free fluid throughout the abdomen. Mild body wall anasarca. Pelvis: Bladder: Urinary bladder is decompressed. Bowel: No dilated loops of large or small bowel. Wall thickening of the colon as well as loops of s mall bowel. Appendix: Normal appendix. Pelvis: Coarse calcification the uterus likely representing fibroid. Large exophytic fibroid arising from the uterine fundus. IMPRESSION 1. Wall thickening of the small bowel and colon. These findings could be seen with entero colitis. Alternatively, hypoproteinemia could produce this appearance. 2. Small amount of free fluid in the abdomen. 3. Fibroid uterus. Electronically signed by: Yao Obrien 01/29/2021 3:04 AM INFECTION CONTROL MANAGER Due to temporary technical issues with the PACS/Fluency reporting system, reports are being signed by the in house radiologists without review as a courtesy to insure prompt reporting. The interpreting radiologist is fully responsible for the content of the report.
== END 2021-01-29 03:55 | disposition home or self-care (01) ==
LOC: ER 22:42
DX: K52.9 Noninfective gastroenteritis and colitis, unspecified (principal); N39.0 Urinary tract infection, site not specified; I10 Essential (primary) hypertension; Z88.2 Allergy status to sulfonamides
CPT/HCPCS: 36415; 74176; 80048; 80076; 81003; 81025; 83690; 84484; 85025; 93005; 96374; 96375; 99285; J0696; J2765

== ENCOUNTER 2021-01-31 12:31 | Emergency (ER) | payer SELFPAY ==
--- OUTSIDE RECORDS SUMMARY | 2021-01-31 12:34 | XMS REPORT | Continuity of Care Document ---
:1985 Author Organization [facility] t Address [address] [place] [address] Care Team Providers Name Role Phone Lizzy [...] Department ID 2020-11-13 2020-11-13 Telephone [place] [id number] 00:00:00 00:00:00 Felicity Ball AREA ATTENDANT [id number] [facility] [id number] MATERNAL [id number] & CHILD [address] [place] [address] Results This patient has no known results.
== END 2021-01-31 13:08 | disposition left against medical advice (07) ==
LOC: ER 12:31
DX: R69 Illness, unspecified (principal); Z53.21 Procedure and treatment not carried out due to patient leaving prior to being seen by health care provider

== ENCOUNTER 2023-08-15 10:38 | Emergency (ER) | payer SELFPAY ==
--- OUTSIDE RECORDS SUMMARY | 2023-08-15 10:41 | XMS REPORT | Continuity of Care Document ---
:1985 Author Organization [facility] t Address [address] [facility] [address] [place] [address] Care Team Providers Name Role Phone PCP, PATIENT DOES NOT HAVE A Primary Care Physician UnavailFelicity Suresh Attending Clinician FELICITY RUEDA Attending Clinician Unavailable Doctor Unassigned, [place] Attending Clinician Unavailable Kody Whitten Attending Clinician Tommie Eisenberg MD Attending Clinician Gregor Morrell DO Attending Clinician Brennen HIGGINBOTHAM, Lesley L Attending Clinician Unavailable Elian Conner MD Attending Clinician ELIAN CONNER Attending Clinician Unavailable GREGOR MORRELL Attending Clinician Unavailable Tommie Eisenberg MD Admitting Clinician Elian Conner MD Admitting Clinician ELIAN CONNER Admitting Clinician Unavailable Payers Payer Name Policy Type Policy Number Effective Date Expiration Date S ource Problems Condition Condition Condition Status Onset Resolution Last Treating Co mments Source Name Details Category Date Date Treatment Clinician Date Dyslipidem Dyslipidem Disease Active U nivers ia ia 4-25 ity of 00:00: [address] Anemia Anemia Disease Active Univers associated associated 4-25 it y of with with 00:00: [place] nutritiona nutritiona 00 Me dical l l Branch deficiency deficiency Chest pain Chest pain Disease Active U nivers 4-24 ity of 00:00: [place] [facility] Elevated Elevated Disease Active Unive rs brain brain 3-11 ity of natriure[place] c peptide c peptide 00 Medi tonie (BNP) (BNP) Branch level level Atypical Atypical Disease Active Unive rs chest pain chest pain 3-11 it y of 00:00: [place] [facility] Enterocoli Enterocoli Disease Active U nivers tis tis 3-10 ity of 00:00: [place] [facility] History of History of Disease Active 2019-11 U nivers bilateral bilateral 2-10 ity of tubal tubal 00:00: [place] ligation ligation 00 Medica l Branch Screen for Screen for Disease Active 2019-11 U nivers STD STD 2-10 ity of (sexually ([place]ually [place] transmit[place] transmitte 00 Me dical d disease) d disease) Br anch Vaginal Vaginal Disease Active 2019-11 Univers itching itching 2-10 ity of 00:00: [place] 00 Medical Branch Essential Essential Disease Active 2019-11 Uni vers hypertensi hypertensi 2-10 it y of on on 00:00: [place] [address] Medical Branch Personal Personal Disease Active 2019-11 Unive rs history of history of 2-10 it y of systemic systemic 00:00: [place] lupus lupus 00 Medical erythemato erythemato Br anch soha (SLE) soha (SLE) Overweight Overweight Disease Active 2019-11 U nivers 2-10 ity of 00:00: [place] [facility] Encounter Encounter Disease Active 2019-11 Uni vers for for 2-10 ity of surveillan surveillan [place] of ce of 00 Medical contracept contracept Br anch jose r, jose r, unspecifie unspecifie d d contracept contracept frank frank Allergies, Adverse Reactions, Alerts Allergy Allergy Status Severity Reaction(s) Onset Inactive Treating Comm ents Source Name Type Date Date Clinician SULFA Drug Active Rash 2019-11 Univers (SULFONA Class 0-13 ity of MIDE 00:00: [place] ANTIBIOT 00 Medical ICS) Branch Sulfa Propensi Active Rash 2019-11 Univers (Sulfona ty to 0-13 ity of mide adverse 00:00: [place] Antibiot reaction 00 Medica l ics) s Branch Social History Social Habit Start Date Stop Date Quantity Comments Source History [facility] o f Alcohol Std [place] Medical Drinks Branch History [facility] o f Alcohol Binge [place] Medic al Branch History [facility] o f Alcohol Comment [place] Med ical [facility] Alcohol intake 2021-03-18 2021-03-18 Ex-drinker University 00:00:00 00:00:00 (finding) [facility] Tobacco use and 2021-02-01 2021-02-01 Never used Universit y of exposure 00:00:00 00:00:00 [facility] History SDOH 2020-11-02 2020-11-02 1 University o f Alcohol Frequency 00:00:00 00:00:00 [facility] [place] Sex Assigned At [birth year] Universit y of 00:00:00 00:00:00 [facility] Smoking Status Start Date Stop Date Source Former smoker 2021-02-01 00:00:00 2021-02-01 00:00:00 Universi ty of [facility] Medications Ordered Filled Start Stop Current Ordering Indication Dosage Frequency Signature Comments Components Source Medication Medication Date Date Medication? Clinician (SIG) Name Name hydrOXYchlo Yes 200mg Take 200 U nivers roQUINE 200 4-25 mg by ity of mg tablet 15:10: mouth [place] [address] daily. [facility] Branch furosemide Yes 40mg Take 40 mg U nivers 40 mg 4-25 by mouth ity of tablet 15:10: daily. [address] lisinopriL Yes 10mg Take 10 mg U nivers 10 mg 4-25 by mouth ity of tablet 15:10: daily. [address] mycophenola Yes 1500mg Take 3 Un irma te mofetil 4-25 tablets by ity of 500 mg 00:00: mouth [place] tablet 00 every 12 Medical (twelve) Branch hours. Procedures This patient has no known procedures. Encounters Start End Encounter Admission Attending Care Care Encounter Source Date/Time Date/Time Type Type Clinicians Facility Department ID 2021-09-23 Emergency [facility] [id number] Univers 15:04:58 ity of [facility] 2021-09-23 Emergency [facility] [id number] Univers 15:02:26 ity of [facility] 2021-09-23 Emergency [facility] [id number] Univers 05:04:17 ity of [facility] 2023-08-05 2023-08-05 Outpatient [facility] Mohan 14:38:57 14:38:57 [id number] [address] [place] 2023-08-02 2023-08-02 Outpatient [facility] Mohan 09:52:36 09:52:36 [id number] [address] [place] 2023-07-28 2023-07-28 Outpatient [facility] Mohan 16:05:09 16:05:09 [id number] [facility] 2021-11-05 2021-11-05 [facility] [id number] Univers 10:30:00 10:45:00 Visit Felicity Ball [employer]IN[employer] TEAM MEMBER [id number] ity of [facility] [id number] Josiah as MATERNAL [phone] Med ical & CHILD [address] [place] [address] 2021-11-05 2021-11-05 Outpatient R MOHIT [facility] [id number] Univers 10:30:00 10:30:00 FELICITY julio o f [facility] 2021-11-05 2021-11-05 Orders Doctor GERA [id number] Univers 00:00:00 00:00:00 Only Unassigned, JACQUELYN [id number] ity of [place] [facility] [id number] Josiah as [phone] [facility] 009 Branch 2021-03-17 2021-03-18 Emergency Kody Gunn [facility] 1.2.840. [id number] Univers 20:36:00 13:11:00 Tommie Eisenberg [id number] ity of [place] [id number] [place] [facility] [phone] [facility] 081 Branch 2021-03-17 2021-03-17 Emergency Singer [facility] [id number] Univers 05:49:00 10:44:00 Gregor Juarez [id number] i ty of [id number] [place] [id number] [facility] 084 Branch 2021-03-17 2021-03-17 Orders Doctor GERA [id number] Univers 00:00:00 00:00:00 Only Unassigned, JACQUELYN [id number] ity of [place] [facility] [id number] Josiah as [phone] [facility] 009 Branch 2021-02-27 2021-02-27 Office Mohit [facility] [id number] Univers 10:12:48 10:50:08 Visit Felicity Ball [employer] TEAM MEMBER [id number] ity of [facility] [id number] Josiah as MATERNAL [phone] Med ical & CHILD [address] [place] [address] 2021-02-27 2021-02-27 Outpatient Lizzy RUEDA [facility] [id number] Univers 10:30:00 10:30:00 FELICITY julio o f [facility] 2021-02-27 2021-02-27 Orders Doctor GERA 1.2.840.114 [id number] Univers 00:00:00 00:00:00 Only Unassigned, JACQUELYN [id number] ity of [place] [facility] [id number] Josiah as [phone] [facility] 009 [place] 2021-02-21 2021-02-21 Outpatient R MOHIT [facility] [id number] Univers 14:30:00 14:30:00 FELICITY julio o f [facility] 2021-02-05 2021-02-05 Transition Antonio Hutton 1.2.840.114 [id number] Univers 00:00:00 00:00:00 of Care Lesley Allen [id number] i ty of [place]7.2.686 [place] [phone] [facility] 403 Branch 2021-01-31 2021-02-02 [facility] Kody Gunn [facility] [id number] Univers 17:41:00 13:30:00 Encounter Elian Conner [place] [id number] ity [facility] [id number] [address] 2021-01-31 2021-02-02 Inpatient X FARIBA [facility] LUIS [id number] Univers 17:41:00 13:30:00 ADNAN ity [facility] 2020-11-13 2020-11-13 Telephone [facility] [id number] Univers 00:00:00 00:00:00 Rosdominicnda R [employer]IN[employer] TEAM MEMBER [id number] ity of [facility] [id number] Josiah as MATERNAL [phone] Med ical & CHILD [address] [place] [address] 2020-11-13 2020-11-13 Telephone [facility] [id number] 00:00:00 00:00:00 Rosdominicnda R BIOINFORMATICS TEAM MEMBER [id number] REGIONAL [id number] MATERNAL [phone] & CHILD [address] [place] [address] 2020-11-06 2020-11-06 [facility] [id number] Univers 00:00:00 00:00:00 Rosdominicnda R BIOINFORMATICS TEAM MEMBER [id number] ity of [facility] [id number] Josiah as MATERNAL [id number] Med ical & CHILD [address] [place] [address] 2020-11-02 2020-11-02 [facility] 1.2.840.114 [id number] Univers 09:31:05 10:58:26 Visit Rsoemarienda R [employer]IN[employer] TEAM MEMBER [id number] ity of [facility] [id number] Josiah as MATERNAL [id number] Med ical & CHILD [address] [place] [address] 2020-11-02 2020-11-02 Outpatient R MOHIT [facility] [id number] Univers 09:45:00 09:45:00 ROSHUNDA ity o f [facility] 2020-11-02 2020-11-02 Orders Doctor GERA 1.2.840.114 [id number] Univers 00:00:00 00:00:00 Only Unassigned, JACQUELYN [id number] ity of [place] [facility] [id number] Josiah as [phone] [facility] 009 Branch 2020-09-05 2020-09-05 Emergency [facility] [id number] Univers 09:08:00 09:48:00 Gregor Juarez [id number] i ty of [place] [id number] [place] [id number] [facility] 084 Branch 2020-09-05 2020-09-05 Emergency X [facility] ERT [id number] Univers 09:08:00 09:08:00 GREGOR julio [facility] Results Test Description Test Time Test Comments Results Result Comments Source RPR 2023-08-05 01:53:29 Test Item Value Reference Range Interpretation Comme nts RPR RESULT (test code = 3501) NON-REACTIVE NON-REACTIVE RPR TITER (test code = 3500) NOT INDIC. TITER NOT INDIC. HEPATITIS PANEL, [id number] 01:32:36 Test Item Value Reference Range Interpretation Comments HEPATITIS A IgM (test NON-REACTIVE NON-REACTIVE code = 49891) HEPATITIS B CORE IgM NON-REACTIVE NON-REACTIVE (test code = 4644) HEPATITIS B SURF AG NON-REACTIVE NON-REACTIVE (test code = 2739) HEPATITIS C ANTIBODY NON-REACTIVE NON-REACTIVE (test code = 4675) INTERPRETATION (NOTE) Hepatitis A HEPATITIS A: (test code sero logy shows no = 2552) evidence of acu te hepatitis A. INTERPRETATION (NOTE) Hepatitis B HEPATITIS B: (test code sero logy shows no = 46329) evidence of acu te hepatitis B and no indication of exposure to hepatitis B vir us in the previous bri eight months. INTERPRETATION (NOTE) Hepatitis C HEPATITIS C: (test code sero logy shows no = 67795) evidence of exposure to hepatitisC viru s at this time. I t can take up to 12 months after exposure tothe hepatitis C vir us for antibodies to become detectab le in the blood in certain patient s. HIV 1/2 4TH GEN, RFLX [id number] 01:32:36 Test Item Value Reference Range Interpretation Comments HIV / 4TH GEN, RFLX CONF (test NON-REACTIVE NON-REACTIVE code = 3514) CT/NG, NAAT, [id number] 16:51:16 Test Item Value Reference Range Interpretation Comments CHLAMYDIA, NAAT, NEGATIVE NEGATIVE Testing is performed with URINE (test code Gerardo SANDEE 6800/8800 = 25347) systems usingre al-time polymerase georgette n reaction (PCR) method. A negative result does not exclude low level infection , specimensamplin g error, or collection erro r. GONORRHEA, NAAT, POSITIVE NEGATIVE A Testing is performed with URINE (test code Gerardo SANDEE 6800/8800 = 73869) systems usingre al-time polymerase georgette n reaction (PCR) method. U NLESS OTHERWISE INDIC ATED, ALL TESTING PERFORM ED AT [facility]. [address] [place] [address] 7148 LABORATORY DIRE CTOR: Florinda VILLA NUMBER [id number] CAP ACCREDITATION N O. [id number]
--- NOTE | 2023-08-15 11:13 | RAD REPORT ---
EXAM DESCRIPTION: CT - Head Brain Wo Cont - 08/15/2023 11:06 am CLINICAL HISTORY: HEADACHE COMPARISON: No comparisons TECHNIQUE: All CT scans are performed using dose optimization technique as appropriate and may inclu de automated exposure control or mA/KV adjustment according to patient size. FINDINGS: Multifocal right cerebral hemisphere infarcts including the right frontal lobe and right p arietal lobe. These are favored chronic. Remote right basal low radiata infarct.No areas of brain edema or evidence of midline shift. Mild left maxillary sinus mucosal thickening. The calvarium is intact. IMPRESSION: No definite acute intracranial abnormality. Multiple remote right cerebral hemisphere c ortical and deep white matter infarcts favored chronic. If concern for acute infarct, MRI could rolando r assess.
[2023-08-15] MEDS ORDERED: DIPHENHYDRAMINE 50 MG/ML VIAL ONE (11:27)
[2023-08-15] MEDS ORDERED: KETOROLAC 30 MG/ML INJ ONE (11:27)
[2023-08-15] MEDS ORDERED: NA CHLORIDE 0.9% 1,000 ML ONE (11:27)
[2023-08-15] MEDS ORDERED: NA CHLORIDE 0.9% 100 ML ONE (11:27)
[2023-08-15] MEDS ORDERED: METOCLOPRAMIDE 10 MG/2mL INJ ONE (11:27)
[2023-08-15 11:46] LABS: Specific Gravity 1.012 (1.005-1.030)
[2023-08-15 11:49] LABS: Absolute Lymphocytes (CBC) 1.8 K/uL (0.7-4.9); Hematocrit 33.2 % (36.0-45.0); Lymphocytes % 23.5 % (15.3-44.8); MCV 80.1 fL (80-100); MPV 8.6 fL (7.6-11.3); Platelets 172 thou/uL (152-406); RBC Red Blood Cell Count 4.15 M/uL (3.86-4.86)
[2023-08-15 11:58] LABS: Specific Gravity 1.012 (1.005-1.030); Urine Bacteria None Seen /HPF (<20); Urine Bilirubin NEGATIVE (Negative); Urine Blood 1+ (Negative); Urine Clarity Turbid (Clear); Urine Color Colorless (Yellow); Urine Glucose NEGATIVE (Negative); Urine Mucus Slight /HPF (None Seen); Urine Protein 3+ (Negative); Urine Urobilinogen Normal (Normal); Urine WBC Clump Rare /HPF (None Seen); Urine pH 7.5 (5.0-7.0)
[2023-08-15 12:13] LABS: ALT/SGPT 16 U/L (13-56); AST/SGOT 13 U/L (15-37); Albumin 1.3 g/dL (3.4-5.0); Alkaline Phosphatase 58 U/L (45-117); BUN Blood Urea Nitrogen 18 mg/dL (7-18); Bicarbonate 30 mEq/L (21-32); Glomerular Filtration Rate 68 ml/min (=/>90); Glucose Level 98 mg/dL (74-106); Potassium 3.8 mEq/L (3.5-5.1); Protein, Total 4.3 g/dL (6.4-8.2); Sodium Level 140 mEq/L (136-145)
[2023-08-15 12:14] LABS: Bilirubin Total < 0.1 mg/dL (0.2-1.0)
[2023-08-15] MEDS ORDERED: FUROSEMIDE 20 MG/ 2ML VIAL ONE (12:59)
[2023-08-15] MEDS ORDERED: CEFTRIAXONE 1000 MG/VIAL ONE (13:00)
[2023-08-15] MEDS ORDERED: NA CHLORIDE 0.9% 50 ML ONE (13:00)
[2023-08-15] MEDS ORDERED: AMLODIPINE 10 MG TAB ONE (13:00)
[2023-08-15] MEDS ORDERED: HYDRALAZINE HCL 10 MG TABLET ONE (13:00)
--- NOTE | 2023-08-15 13:02 | ER ---
Nurse's Notes [facility] Name: Sha Hernandez Age: 38 yrs Sex: Female : 1985 Arrival Date: 08/15/2023 Time: 10:38 Bed 17 Private MD: Diagnosis: Essential (primary) hypertension;Headache;Systemic lupus erythematosus, unspecified;UTI/ Urinary tract infection, site not specified Presentation: 08/15 10:59 Chief complaint: Left sided headache, nausea, and photosensitivity since yesterday. hb Vomit x 1 yesterday. 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 Coronavirus screen: At this time, the client does not indicate any symptoms associated with coronavirus-19. Ebola Screen: No symptoms or risks identified at this time. Initial Sepsis Screen: Does the patient meet any 2 criteria? No. Patient's initial sepsis screen is negative. Does the patient have a suspected source of infection? No. Patient's initial sepsis screen is negative. Risk Assessment: Do you want to hurt yourself or someone else? Patient reports no desire to harm self or others. Onset of symptoms was August 14, 2023. 10:59 Method Of Arrival: Ambulatory hb 10:59 Acuity: BEATA 3 hb Historical: - Allergies: 11:01 Sulfa (Sulfonamide Antibiotics); hb - Home Meds: 11:01 Furosemide Oral [Active]; hydroxychloroquine Oral [Active]; lisinopril Oral [Active]; hb mycophenolate mofetil Oral [Active]; - PMHx: 11:01 Hypertension; Lupus; CVA - left sided weakness (Lupus); hb Vital Signs: 10:59 BP 159 / 110; Pulse 89; Resp 16; Temp 98.4(O); Pulse Ox 98% on R/A; Weight 64.41 kg; hb Height 5 ft. 6 in. ; Pain 10/10; 10:59 Body Mass Index 22.92 (64.41 kg, 167.64 cm) hb 10:59 Pain Scale: Adult hb Mane Coma Score: 12:46 Eye Response: spontaneous(4). Motor Response: obeys commands(6). Verbal Response: hiram oriented(5). Total: 15. NIH Stroke Scale Scores: 12:42 NIHSS Score: 0 hiram ED Course: 10:41 Patient arrived in ED. mr Alex:42 Drake Ely MD is Attending Physician. hiram 11:01 Triage completed. hb 11:01 Arm band placed on. hb 11:03 Mine Nunn, NEFTALY is Primary Nurse. ph 11:07 CT Head Brain wo Cont In Process Unspecified. EDMS 13:01 Tereso Suh MD is Referral Physician. hiram Administered Medications: 11:43 Drug: NS 0.9% IV 1000 ml IV at 1 bolus Per protocol; 1000 mL bolus Route: IV; Rate: 1 ph bolus; Site: right antecubital; 11:43 Drug: Ketorolac IVP 30 mg IVP once Route: IVP; Site: right antecubital; ph 11:43 Drug: diphenhydrAMINE IVP 50 mg IVP once Route: IVP; Site: right antecubital; ph 11:43 Drug: metoCLOPramide IVP 10 mg IVP once; over 1 to 2 minutes Route: IVP; Site: right ph antecubital; 13:06 Drug: Norvasc PO 10 mg PO once Route: PO; ph 13:06 Drug: Furosemide IVP 10 mg IVP once; give over 2 minutes Route: IVP; Site: right ph antecubital; 13:06 Drug: hydrALAZINE PO 10 mg PO once Route: PO; ph 13:06 Drug: Rocephin IV 1 grams IV at per protocol once; Given slow IV push per pharmacy ph instructions Route: IV; Rate: per protocol; Site: right antecubital; Outcome: 13:01 Discharge ordered by . hiram 14:16 Patient left the ED. ph NIH Stroke Scale - NIH Stroke Score Date: 08/15/2023 Time: 12:42 Total Score = 0 10. Dysarthria (speech clarity - read or repeat words) - 0(Normal) 11. Extinction and Inattention (visual/tactile/auditory/spatial/personal) - 0(No abnormality) 1a. Level of Consciousness (LOC) - 0(Alert) 1b. Level of Consciousness (LOC) (Month \T\ Age) - 0(Both) 1c. LOC Commands (Open \T\ Closes Eyes/Garbage Pick Up Worker) - 0(Both) 2. Best Gaze (Lateral Gaze Paresis) - 0(Normal) 3. Visual Field Loss - 0(No visual loss) 4. Facial Palsy - 0(Normal) 5a. Left Arm: Motor (10-second hold) - 0(No drift) 5b. Right Arm: Motor (10-second hold) - 0(No drift) 6a. Left Leg: Motor (5-second hold - always test supine) - 0(No drift) 6b. Right Leg: Motor (5-second hold - always test supine) - 0(No drift) 7. Limb Ataxia (finger/nose \T\ heel/bonilla - test with eyes open) - 0(Absent) 8. Sensory Loss (pinprick arms/legs/face) - 0(Normal) 9. Best Language: Aphasia (description/naming/reading) - 0(No aphasia) Initials: hiram Signatures: Dispatcher [employer] EDDrake Gomez MD MD cha Rivera, Mary, [facility] Jeferson mr Mine Nunn, RN RN Kathleen Morris, NEFTALY RN
--- NOTE | 2023-08-15 13:02 | EDPHYS ---
Physician Documentation [facility] Name: Sha Hernandez Age: 38 yrs Sex: Female : 1985 Arrival Date: 08/15/2023 Time: 10:38 Bed 17 Private MD: PAUL Physician Drake Ely HPI: 08/15 12:35 This 38 yrs old Black Female presents to ER via Ambulatory with complaints of Headache. hiram 12:35 The patient complains of pain to the top of head, forehead, left frontal area, left hiram side of the back of head, right frontal area and right side of the back of head. The patient describes the headache as aching. Onset: The symptoms/episode began/occurred 3 day(s) ago. Associated signs and symptoms: The patient has no apparent associated signs or symptoms. Severity of symptoms: At its worst the pain was mild, moderate, in the emergency department the pain is unchanged. Headache History: The patient has had previous headaches and this one is different than previous episodes. The symptoms are alleviated by nothing. the symptoms are aggravated by lights, noise. The patient has experienced similar episodes in the past, multiple times. Historical: - Allergies: 11:01 Sulfa (Sulfonamide Antibiotics); hb - Home Meds: 11:01 Furosemide Oral [Active]; hydroxychloroquine Oral [Active]; lisinopril Oral [Active]; hb mycophenolate mofetil Oral [Active]; - PMHx: 11:01 Hypertension; Lupus; CVA - left sided weakness (Lupus); hb ROS: 12:42 Constitutional: Negative for fever, chills, and weight loss, Eyes: Negative for injury, hiram pain, redness, and discharge, ENT: Negative for injury, pain, and discharge, Neck: Negative for injury, pain, and swelling, Cardiovascular: Negative for chest pain, palpitations, and edema, Respiratory: Negative for shortness of breath, cough, wheezing, and pleuritic chest pain, Abdomen/GI: Negative for abdominal pain, nausea, vomiting, diarrhea, and constipation, Back: Negative for injury and pain, : Negative for injury, bleeding, discharge, and swelling, MS/Extremity: Negative for injury and deformity, Skin: Negative for injury, rash, and discoloration, Psych: Negative for depression, anxiety, suicide ideation, homicidal ideation, and hallucinations, Allergy/Immunology: Negative for hives, rash, and allergies, Endocrine: Negative for neck swelling, polydipsia, polyuria, polyphagia, and marked weight changes, Hematologic/Lymphatic: Negative for swollen nodes, abnormal bleeding, and unusual bruising, 12:42 Neuro: Positive for headache, Exam: 12:42 Constitutional: This is a well developed, well nourished patient who is awake, alert, hiram and in no acute distress. Head/Face: Normocephalic, atraumatic. Eyes: Pupils equal round and reactive to light, extra-ocular motions intact. Lids and lashes normal. Conjunctiva and sclera are non-icteric and not injected. Cornea within normal limits. Periorbital areas with no swelling, redness, or edema. ENT: Nares patent. No nasal discharge, no septal abnormalities noted. Tympanic membranes are normal and external auditory canals are clear. Oropharynx with no redness, swelling, or masses, exudates, or evidence of obstruction, uvula midline. Mucous membranes moist. Neck: Trachea midline, no thyromegaly or masses palpated, and no cervical lymphadenopathy. Supple, full range of motion without nuchal rigidity, or vertebral point tenderness. No Meningismus. Chest/axilla: Normal chest wall appearance and motion. Nontender with no deformity. No lesions are appreciated. Cardiovascular: Regular rate and rhythm with a normal S1 and S2. No gallops, murmurs, or rubs. Normal PMI, no JVD. No pulse deficits. Respiratory: Lungs have equal breath sounds bilaterally, clear to auscultation and percussion. No rales, rhonchi or wheezes noted. No increased work of breathing, no retractions or nasal flaring. Abdomen/GI: Soft, non-tender, with normal bowel sounds. No distension or tympany. No guarding or rebound. No evidence of tenderness throughout. Back: No spinal tenderness. No costovertebral tenderness. Full range of motion. Skin: Warm, dry with normal turgor. Normal color with no rashes, no lesions, and no evidence of cellulitis. MS/ Extremity: Pulses equal, no cyanosis. Neurovascular intact. Full, normal range of motion. Psych: Awake, alert, with orientation to person, place and time. Behavior, mood, and affect are within normal limits. 12:42 Neuro: Orientation: is normal, appropriate for stated age, no acute changes, Mentation: is normal, appropriate for stated age, no acute changes, Memory: is normal, appropriate for stated age, no acute changes, Cranial nerves: grossly normal, is grossly normal based on the patient's age, no acute changes, Cerebellar function: is grossly normal, is grossly normal based on the patient's age, no acute changes, Motor: moves all fours, Sensation: no obvious gross deficits, appropriate no acute changes, Gait: appropriate for age, seizure activity, is not displayed by the patient, Vital Signs: 10:59 BP 159 / 110; Pulse 89; Resp 16; Temp 98.4(O); Pulse Ox 98% on R/A; Weight 64.41 kg; hb Height 5 ft. 6 in. ; Pain 10/10; 10:59 Body Mass Index 22.92 (64.41 kg, 167.64 cm) hb 10:59 Pain Scale: Adult hb NIH Stroke Scale Scores: 12:42 NIHSS Score: 0 hiram Mane Coma Score: 12:46 Eye Response: spontaneous(4). Motor Response: obeys commands(6). Verbal Response: hiram oriented(5). Total: 15. MDM: 10:42 Patient medically screened. hiram 12:46 Differential diagnosis: cluster headache, cerebral vascular accident, hypertensive hiram headache, hyponatremia, migraine, neoplasm, sinusitis, tension headache, trigeminal neuralgia. Data reviewed: vital signs, nurses notes, lab test result(s), radiologic studies. Consideration of Admission/Observation Escalation of care including admission/observation considered. I considered the following discharge prescriptions or medication management in the emergency department Medications were administered in the Emergency Department. See MAR. Independent interpretation of the following test(s) in the Emergency Department CT Scan: My interpretation is ct head. Test considered but Not performed: MRI: no mri brain. Care significantly affected by the following chronic conditions: Hypertension, lupus, cva. 08/15 10:51 Order name: CBC with Diff; Complete Time: 12:04 [facility] 08/15 10:51 Order name: Comprehensive Metabolic Panel; Complete Time: 12:33 [facility] 08/15 10:51 Order name: Urinalysis w/ reflexes; Complete Time: 12:33 [facility] 08/15 10:51 Order name: PREGU; Complete Time: 12:04 [facility] 08/15 12:32 Order name: Urine Culture EDMS 08/15 10:51 Order name: CT Head Brain wo Cont; Complete Time: 12:04 hiram 08/15 10:51 Order name: Oxygen; Complete Time: 11:43 hiram Administered Medications: 11:43 Drug: NS 0.9% IV 1000 ml IV at 1 bolus Per protocol; 1000 mL bolus Route: IV; Rate: 1 ph bolus; Site: right antecubital; 11:43 Drug: Ketorolac IVP 30 mg IVP once Route: IVP; Site: right antecubital; ph 11:43 Drug: diphenhydrAMINE IVP 50 mg IVP once Route: IVP; Site: right antecubital; ph 11:43 Drug: metoCLOPramide IVP 10 mg IVP once; over 1 to 2 minutes Route: IVP; Site: right ph antecubital; 13:06 Drug: Norvasc PO 10 mg PO once Route: PO; ph 13:06 Drug: Furosemide IVP 10 mg IVP once; give over 2 minutes Route: IVP; Site: right ph antecubital; 13:06 Drug: hydrALAZINE PO 10 mg PO once Route: PO; ph 13:06 Drug: Rocephin IV 1 grams IV at per protocol once; Given slow IV push per pharmacy ph instructions Route: IV; Rate: per protocol; Site: right antecubital; Disposition Summary: 08/15/23 13:01 Discharge Ordered Notes: Location: Home hiram Problem: new hiram Symptoms: have improved hiram Condition: Stable hiram Diagnosis - Essential (primary) hypertension hiram - Headache hiram - Systemic lupus erythematosus, unspecified hiram - UTI/ Urinary tract infection, site not specified hiram Followup: hiram - With: Private Physician - When: 2 - 3 days - Reason: Recheck today's complaints, Continuance of care, Re-evaluation by your physician Followup: hiram - With: Tereso Suh MD - When: 2 - 3 days - Reason: Recheck today's complaints, Re-evaluation by your physician Discharge Instructions: - Discharge Summary Sheet hiram - Hypertension, Adult hiram - Urinary Tract Infection, Adult hiram - Urinary Tract Infection, Adult, [id number] hiram - Hypertension, Adult, [id number] hiram - How to Take Your Blood Pressure, [id number] hiram - Managing Your Hypertension hiram Forms: - Medication Reconciliation Form hiram - Thank You Letter hiram - Antibiotic Education hiram - Prescription Opioid Use [facility] - Patient Portal Instructions [facility] - Leadership Thank You Letter [facility] Prescriptions: - Cipro 250 mg Oral tablet - take 1 tablet ORAL route every 12 hours; 14 tablet; Refills: 0, Product [facility] Selection Permitted - Norvasc 10 mg Oral Tablet - take 1 tablet ORAL route once daily; 30 tablet; Refills: 0, Product Selection [facility] Permitted - Lasix 20 mg Oral Tablet - take 1 tablet ORAL route once daily; 20 tablet; Refills: 0, Product Selection [facility] Permitted - Hydralazine 10 mg Oral tablet - take 1 tablet ORAL route 3 times per day with food; 60 tablet; Refills: 0, [facility] Product Selection Permitted NIH Stroke Scale - NIH Stroke Score Date: 08/15/2023 Time: 12:42 Total Score = 0 10. Dysarthria (speech clarity - read or repeat words) - 0(Normal) 11. Extinction and Inattention (visual/tactile/auditory/spatial/personal) - 0(No abnormality) 1a. Level of Consciousness (LOC) - 0(Alert) 1b. Level of Consciousness (LOC) (Month \T\ Age) - 0(Both) 1c. LOC Commands (Open \T\ Closes Eyes/[employer]) - 0(Both) 2. Best Gaze (Lateral Gaze Paresis) - 0(Normal) 3. Visual Field Loss - 0(No visual loss) 4. Facial Palsy - 0(Normal) 5a. Left Arm: Motor (10-second hold) - 0(No drift) 5b. Right Arm: Motor (10-second hold) - 0(No drift) 6a. Left Leg: Motor (5-second hold - always test supine) - 0(No drift) 6b. Right Leg: Motor (5-second hold - always test supine) - 0(No drift) 7. Limb Ataxia (finger/nose \T\ heel/obnilla - test with eyes open) - 0(Absent) 8. Sensory Loss (pinprick arms/legs/face) - 0(Normal) 9. Best Language: Aphasia (description/naming/reading) - 0(No aphasia) Initials: [facility] Signatures: Dispatcher [employer] Drake Zhang MD MD cha Hall, Patricia, RN RN ph Baxter, Heather, RN RN
[2023-08-15 14:36] VITALS: BP 159/110; TEMP 98.4; O2SAT 98
== END 2023-08-15 14:16 | disposition home or self-care (01) ==
LOC: ER 10:38
DX: N39.0 Urinary tract infection, site not specified (principal); M32.9 Systemic lupus erythematosus, unspecified; I10 Essential (primary) hypertension
CPT/HCPCS: 36415; 70450; 80053; 81001; 81025; 85025; 87086; 87088; 96374; 96375; 99284; J0696; J1200; J1940; J2765; J7030